=== PATIENT | female | born 1980 | race Hispanic/Latino ===

== ENCOUNTER → 2016-10-21 | Day surgery (SDC) | payer OTHER ==
[~2016-10-21] VITALS: Ht 160 cm; Wt 90.7 kg
[~2016-10-21] MED LIST: AUGMENTIN 875-1 EACH PO; CALCIUM + VITA1 EAC1 PO; CLEOCIN HCL300 M1 PO; COLACE100 MG PO; DILAUDID2 M1 PO; EPIPEN 2-P0.3 MG/0.3 IM; FERROUS SULFAT325 M2 PO; HAIR, SKIN & N1 EACH PO; HYDROXYZINE HCL25 M2 PO; IBUPROFEN800 M1 PO; LEXAPRO10 M1 PO; LEXAPRO5 M1 PO; NYSTATIN15 G1 TOP; PERCOCET 325 MG1 TA2 PO; PERCOCET 5-3251 EACH PO; PROAIR HFA8.5 GM INH; TRAZODONE HCL50 M1 PO; VITAMIN D31000 UNI2 PO
--- NOTE | 2016-10-22 13:05 | Operative Report ---
Operative/Inv Procedure Report Surgery Date: 10/21/16 Name of Procedure: Bilateral breast reduction Pre-Operative Diagnosis: Breast hypertrophy Post-Operative Diagnosis: Same Estimated Blood Loss: 50ml to 100ml (200) Surgeon/Car Rental Sales Assistant: MALATHI OLIVARES MD Anesthesia: general endotracheal tube Operative/Procedure Note Note: Patient was counseled on multiple occasions including discussion of the ASP S informed consents for breast reduction. We discussed the indications the alternatives the risks and expected outcomes. A she has chosen to proceed despite her current weight and she was advised that her breast might decrease in size with further or achieving optimal weight status. She has chosen to proceed. She states she would like her breasts small but she was given no guarantees regards to cup size. She was told she would likely be in the C to D bra cup size depending on how and where she buys her bras. We discussed once again the risks of infection bleeding definite asymmetry which will persist after surgery and was present preoperatively we talked about the possibly of symptomatic or slightly scars. About infection bleeding open wounds loss of nipple sensation and/or tissue. Once agreed to informed consent was signed. I also told her that the lateral chest wall will not be treated. She was marked in the standing position for an inferior pedicle Lovelace pattern technique. She is brought to the operating room placed supine on the table. Venodyne boots are placed and then general endotracheal anesthesia was established. The chest was prepped and draped in usual sterile fashion. De-epithelialize inferior pedicle Lovelace pattern technique was done after excising superior medial and lateral segments. She was temporarily closed put in the sitting position to assess symmetry and marked the location of the NAC's. over 1000grams was removed from each side.
== END ==
LOC: STS 02:07
DX: N62 Hypertrophy of breast (principal); M54.9 Dorsalgia, unspecified; E66.9 Obesity, unspecified
CPT/HCPCS: 81025; 88305; J0131; J0690; J1885; J2250; J2405

== ENCOUNTER 2016-11-05 16:35 | Emergency (ER) | payer OTHER ==
[~2016-11-05] VITALS: Ht 152.4 cm; Wt 90.7 kg
[~2016-11-05 16:35] MED LIST changes: -AUGMENTIN 875-1 EACH PO; -CALCIUM + VITA1 EAC1 PO; -CLEOCIN HCL300 M1 PO; -DILAUDID2 M1 PO; -FERROUS SULFAT325 M2 PO; -HAIR, SKIN & N1 EACH PO; -HYDROXYZINE HCL25 M2 PO; -IBUPROFEN800 M1 PO; -LEXAPRO10 M1 PO; -LEXAPRO5 M1 PO; -NYSTATIN15 G1 TOP; -PERCOCET 5-3251 EACH PO; -TRAZODONE HCL50 M1 PO; -VITAMIN D31000 UNI2 PO
--- NOTE | 2016-11-05 18:09 | ED ANIMAL BITE/WOUND CHECK ---
History of Present Illness General Chief Complaint: General Adult Stated Complaint: DRAINAGE FROM BOTH BREAST FROM PROCEDURE ON 10/21/16 Source: patient Exam Limitations: no limitations Vital Signs & Intake/Output Vital Signs & Intake/Output Vital Signs Date Time Temp Pulse Resp B/P Pulse O2 O2 Flow FiO2 Ox Delivery Rate 11/05 2153 98.9 84 18 140/80 97 Room Air 11/05 1836 98.6 86 18 139/76 100 Room Air ED Intake and Output 11/06 0000 11/05 1200 Intake Total 0 Output Total Balance 0 Intake, Oral 0 Patient 200 lb Weight Triage Note: PT TO ED FOR BREAST DRAINAGE S/P BREAST REDUCTION 10/21/16. STATES SHE HAS BEEN TRYING TO CONTACT PLASTIC SURGEON WHO TOLD HER TO COME TO [facility] "BECAUSE HES WORKING NOW." REPORTING DRAINAGE FOUL SMELLING, INTERMITTENT CHILLS AND "VERY TENDER BREASTS". Triage Nurses Notes Reviewed? yes Onset: Gradual Duration: week(s): (1) Timing: recent history Injury Environment: home No Modifying Factors: none : No Patient currently breastfeeds: No HPI: This is a 36-year-old healthy female who presents to the ER for chief complaint of bilateral breast pain for the past one week with foul-smelling drainage. She is status post bilateral breast reduction by Dr. Byrd on October 21. She states that she's been having episodes of feeling hot and cold at home but no documented temperatures. Last week she took a picture of her wounds and emailed them to the office. She did not hear back from them and called again today. They told her to come to the ER for any worsening pain or ports that there is been drainage from her left breast and some bleeding. She states the ranges foul-smelling and exceedingly painful. She is taking minimal pain medications at home. (MATTHEW ASHRAF,AMRIT) Allergies Coded Allergies: tree nut (Severe, ANAPHYLAXIS 11/05/16) REACTION NOT LISTED DURING PRE-SX INTERVIEW cat dander (RASH, COUGH, DYSPNEA 11/05/16) lactose (GI UPSET 10/12/16) pineapple (RASH/ITCHY TONGUE GOES NUMB AND SORES IN MOUTH 11/05/16) shrimp (ANAPHYLAXIS 11/05/16) Reconcile Medications Albuterol Sulfate (Proair Hfa) 90 MCG HFA.AER.AD 2 PUF INH AD ASTHMA ( Reported) Amoxicillin/Potassium Clav (Augmentin 875-125 Tablet) 875 MG-125 MG TABLET 1 TAB PO BID infection Epinephrine (Epipen 2-Quintin) 0.3 MG/0.3 ML AUTO.INJCT 0.3 MG IM AD PRN ALLERGIC REACTION (Reported) Ibuprofen 800 MG TABLET 1 TAB PO 4 TIMES/DAY PRN pain Oxycodone HCl/Acetaminophen (Percocet 5-325 MG Tablet) 5 MG-325 MG TABLET 1 TAB PO 4XDP PRN PAIN TEN...[id number] ([facility],COLIN Mancuso) Past History Travel History Traveled to [place] past 21 day No Medical History Any Pertinent Medical History? 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 No (MATTHEW ASHRAF,AMRIT) Review of Systems Review of Systems Constitutional: Reports: fever (SUBJECTIVE). Denies: chills. EENTM: Reports: no symptoms. Respiratory: Denies: cough, short of breath. Cardiovascular: Reports: see HPI (BILATERAL WOUND PAIN). GI: Denies: abdominal pain. Genitourinary: Denies: discharge, dysuria. Musculoskeletal: Reports: no symptoms. Skin: Reports: no symptoms. Neurological/Psychological: Reports: no symptoms. Hematologic/Endocrine: Reports: bruising. Denies: bleeding, polyuria, polydipsia. Immunologic/Allergic: Denies: splenectomy. All Other Systems: Reviewed and Negative (AMRIT HAWLEY MD) Physical Exam Physical Exam General Appearance: well developed/nourished, alert, awake, mild distress Head: atraumatic Eyes: Bilateral: PERRL, EOMI. Ears, Nose, Throat: normal pharynx, normal ENT inspection, hearing grossly normal Neck: normal inspection, supple Respiratory: normal breath sounds Cardiovascular: regular rate/rhythm Peripheral Pulses: 2+ radial (R), 2+ radial (L) Gastrointestinal: soft, non-tender Back: normal inspection Extremities: normal range of motion Neurologic/Psych: awake, alert, oriented x 3, normal mood/affect Skin: intact, normal color, warm/dry Lymphatic: no anterior cervical socorro Comments: Tender but intact wound under right breast, no wound dehiscence or drainage no areas of fluctuance Tender but intact wound under left breast, open area above the incision site with some skin breakdown, no active drainage noted, no fluctuance (AMRIT HAWLEY MD) Progress Differential Diagnosis: abscess, cellulitis, POST OP WOUND INFECTION Plan of Care: Orders Procedure Date/time Status BLOOD CULTURE 11/05 1819 Active WESTERGREN SED RATE 11/05 1819 Complete COMPREHENSIVE METABOLIC PANEL 11/05 1819 Complete CBC WITHOUT DIFFERENTIAL 11/05 1819 Complete Laboratory Tests 11/05/161846: Anion Gap 13, Estimated GFR > 60, BUN/Creatinine Ratio 26.7 H, Glucose 85, Calcium 9.1, Total Bilirubin 0.5, AST 22, ALT 33, Alkaline Phosphatase 131 H, Total Protein 7.3, Albumin 4.0, Globulin 3.3, Albumin/Globulin Ratio 1.2, CBC w Diff NO MAN DIFF REQ, RBC 3.50 L, MCV 84.1, MCH 27.8, RDW 15.9 H, MPV 8.2, Gran % 68.4, Lymphocytes % 18.7 L, Monocytes % 3.4, Eosinophils % 8.9 H, Basophils % 0.6, Absolute Granulocytes 8.0 H, Absolute Lymphocytes 2.2, Absolute Monocytes 0.4, Absolute Eosinophils 1.0, Absolute Basophils 0.1, PUBS MCHC 33.1, ESR Westergren 65 H Microbiology 11/05 1900 BLOOD: Blood Culture - RECD 11/05 1847 BLOOD: Blood Culture - RECD I discussed the patient's presentation with Dr. Byrd who agrees with labs. As the patient is afebrile here if her white count is normal he would like to start Augmentin and have her follow-up in the office on Tuesday. (AMRIT HAWLEY MD) Hand-Off Endorsed To: [facility],COLIN Mancuso Endorsed Time: 1917 Pending: labs (AMRIT HAWLEY MD) Departure Departure Disposition: STILL A PATIENT Condition: Stable Clinical Impression Primary Impression: Wound infection after surgery Referrals: SAMMIE CHEATHAM MD (PCP/Family) Departure Forms: Customer Survey General Discharge Information (AMRIT HAWLEY MD) Departure Prescriptions: Current Visit Scripts Amoxicillin/Potassium Clav (Augmentin 875-125 Tablet) 1 TAB PO BID #20 TAB Ibuprofen 1 TAB PO 4 TIMES/DAY PRN pain #90 TAB Oxycodone HCl/Acetaminophen (Percocet 5-325 MG Tablet) 1 TAB PO 4XDP PRN PAIN #10 TAB TEN...[id number] Comments discussed with patient at length... pt with serous drainage from both breasts, left slightly more than right... no sign of abscess... dr. hawley discussed with her plastic surgeon... slightly elevated wbc count with elevated esr... pt to go home with augmentin and will follow up with her surgeon on tuesday and sooner if she develops fever or worsening pain. ([facility],COLIN Mancuso)
[2016-11-05 19:13] LABS: ABSOLUTE BASOPHIL COUNT 0.1 /CUMM (0.0-0.2); ABSOLUTE LYMPH COUNT 2.2 /CUMM (1.2-3.4); ABSOLUTE MONOCYTE COUNT 0.4 /CUMM (0.10-0.60); BASOPHIL % 0.6 % (0.0-2.0); EOSINOPHIL % 8.9 % (0-5); GRANULOCYTE % 68.4 % (42.2-75.2); HEMATOCRIT 29.4 % (37-47); MEAN CORPUSCULAR HGB 27.8 PG (27.0-31.0); MEAN CORPUSCULAR HGB CONC 33.1 G/DL (33.0-37.0); MEAN CORPUSCULAR VOLUME 84.1 FL (81.0-99.0); MEAN PLATELET VOLUME 8.2 FL (7.4-10.4); PLATELET COUNT 381 /CUMM (130-400); RBC DISTRIBUTION WIDTH 15.9 % (11.5-14.5); WHITE BLOOD CELL COUNT 11.7 /CUMM (4.8-10.8)
[2016-11-05] MEDS ORDERED: PERCOCET 5-3251 EACH PO (21:30)
[2016-11-05] MEDS ORDERED: IBUPROFEN800 M1 PO (21:30)
[2016-11-05] MEDS ORDERED: AUGMENTIN 875-1 EACH PO (21:30)
[2016-11-05 21:53] VITALS: BP 140/80
[2016-11-06] MEDS ORDERED: DILAUDID2 M1 PO (14:30)
[2016-11-06] MEDS ORDERED: CLEOCIN HCL300 M1 PO (14:30)
== END 2016-11-05 21:57 ==
LOC: ERH 16:35
PROVIDERS: Emergency Medicine
DX: T81.89XA Other complications of procedures, not elsewhere classified, initial encounter (principal)
CPT/HCPCS: 87040; J3490

== ENCOUNTER 2016-11-06 12:25 | Emergency (ER) | payer OTHER ==
[~2016-11-06] VITALS: Ht 152.4 cm; Wt 90.7 kg
[~2016-11-06 12:25] MED LIST changes: +AUGMENTIN 875-1 EACH PO; +IBUPROFEN800 M1 PO; +PERCOCET 5-3251 EACH PO
--- NOTE | 2016-11-06 13:07 | ED GENERAL ADULT ---
History of Present Illness General Chief Complaint: General Adult Stated Complaint: MEDICATION REACTION Source: patient, old records Exam Limitations: no limitations Vital Signs & Intake/Output Vital Signs & Intake/Output Vital Signs Date Time Temp Pulse Resp B/P Pulse O2 O2 Flow FiO2 Ox Delivery Rate 11/06 1230 98.0 108 18 143/93 96 Room Air Room Air Allergies Coded Allergies: tree nut (Severe, ANAPHYLAXIS 11/05/16) REACTION NOT LISTED DURING PRE-SX INTERVIEW cat dander (RASH, COUGH, DYSPNEA 11/05/16) lactose (GI UPSET 10/12/16) pineapple (RASH/ITCHY TONGUE GOES NUMB AND SORES IN MOUTH 11/05/16) shrimp (ANAPHYLAXIS 11/05/16) Reconcile Medications Amoxicillin/Potassium Clav (Augmentin 875-125 Tablet) 875 MG-125 MG TABLET 1 TAB PO BID infection Clindamycin HCl (Cleocin HCl) 300 MG CAPSULE 1 CAP PO TID POST OP INFECTION Hydromorphone HCl (Dilaudid) 2 MG TABLET 1 TAB PO Q6P PRN PAIN Ibuprofen 800 MG TABLET 1 TAB PO 4 TIMES/DAY PRN pain Oxycodone HCl/Acetaminophen (Percocet 5-325 MG Tablet) 5 MG-325 MG TABLET 1 TAB PO 4XDP PRN PAIN TEN...[id number] Triage Note: TRIAGE: 36 Y/O FEMALE PRESENTS C/O ?MEDICATION REACTION S/P PLACED ON AUGMENTIN YESTERDAY. NOW EXPERIENCING RASH TO LEFT ARM. "MY LEFT ARM SO PAINFUL, IT HAPPENS WHEN I TOOK THE MEDICATION." * HAD BREAST REDUCTION SURGERY BY DR MALATHI OLIVARES ON 10/21/2016. Triage Nurses Notes Reviewed? yes : No Patient currently breastfeeds: No HPI: Patient had recent breast reduction surgery and was seen here yesterday and diagnosed with postop infection. She was discharged home on Augmentin as well as Percocet. Patient states that yesterday both of her arms were hurting however today it just the left one. Patient states that she continues to have pain and tingling to her left arm. Those symptoms have been going on for the past 2-3 days. The pain is throbbing and is constant. The pain is 10 out of 10. There's been no relief from the Percocet. She denies any weakness. Patient denies any fevers or chills. Patient states that she was given a dose of Augmentin last night and this morning she woke up with a rash on both of her arms. Patient did not take her morning dose of Augmentin. Patient called her doctor who told her to come to the emergency room. Patient states that she did not have any difficulty breathing or swallowing. There is no swelling. And the rash has pretty much resolved by the time she arrives at the emergency department. Past History Travel History Traveled to [place] past 21 day No Medical History Any Pertinent Medical History? 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 No Review of Systems Review of Systems Constitutional: Reports: no symptoms. EENTM: Reports: no symptoms. Respiratory: Reports: no symptoms. Cardiovascular: Reports: no symptoms. GI: Reports: no symptoms. Genitourinary: Reports: no symptoms. Musculoskeletal: Reports: see HPI, muscle pain (LEFT ARM). Skin: Reports: see HPI, rash. Neurological/Psychological: Reports: see HPI, tingling (LEFT ARM). Hematologic/Endocrine: Reports: no symptoms. Immunologic/Allergic: Reports: no symptoms. All Other Systems: Reviewed and Negative Physical Exam Physical Exam General Appearance: well developed/nourished, alert, awake, moderate distress Head: atraumatic Eyes: Bilateral: PERRL, EOMI. Ears, Nose, Throat: normal pharynx, normal ENT inspection, hearing grossly normal Neck: normal inspection, supple, full range of motion Respiratory: normal breath sounds, chest non-tender, no respiratory distress, lungs clear Cardiovascular: regular rate/rhythm, normal peripheral pulses Gastrointestinal: normal bowel sounds, soft Extremities: normal inspection, normal capillary refill, normal range of motion, no edema, CAP REFIL <2 SEC, SENSATION EQUAL BETWEEN BOTH ARMS, NORMAL RADIAL PULSE, NO EDEMA, NO SIGNS OF COMPARTMENT SYNDROME. Neurologic/Psych: no motor/sensory deficits, awake, alert, oriented x 3, normal gait, normal mood/affect Skin: intact, normal color, warm/dry, rash (MINIMAL ON LUE AND RUE) Lymphatic: no anterior cervical socorro Core Measures ACS in differential dx? No CVA/TIA Diagnosis: No Severe Sepsis Present: No Septic Shock Present: No Progress Differential Diagnoses I considered the following diagnoses in my evaluation of the patient: [ MEDICATION REACTION, COMPARTNEMTN SYNDROME, DVT] Plan of Care: Orders Procedure Date/time Status US-DUPLEX VENOUS EXTREM UNI 11/06 1305 Active Diagnostic Imaging: Viewed by Me: Ultrasound. Discussed w/RAD: Ultrasound. Radiology Impression: PATIENT: MAGNOLIA MATTA PRESENT AGE: 36 PATIENT ACCOUNT NO: [id number] : 78 LOCATION: [facility] ORDERING PHYSICIAN: DERRICK JUDD MD SERVICE DATE: 11/06/16 EXAM TYPE: US - US-DUPLEX VENOUS EXTREM UNI EXAMINATION: US DUPLEX UPPER EXTREMITY VEINS, LEFT CLINICAL INFORMATION: Postoperative pain and edema. COMPARISON: None. TECHNIQUE: Pulse, color and grayscale modalities are utilized to examine the left upper extremity deep venous system. FINDINGS: The left internal jugular , subclavian, axillary, brachial, basilic, cephalic, radial an ulnar veins are patent and compressible. No deep venous thrombosis is seen. IMPRESSION: Unremarkable examination. DICTATED BY: MALATHI FERRARO MD DATE/TIME DICTATED:11/06 INTERNATIONAL TRADE SPECIALIST:MAILE DATE/TIME TRANSCRIBED:11/06/161411 CONFIDENTIAL, DO NOT COPY WITHOUT APPROPRIATE AUTHORIZATION. <Electronically signed in Other Vendor System> SIGNED BY: MALATHI FERRARO MD 11/06/161416 Initial ED EKG: none Departure Departure Disposition: HOME OR SELF CARE Condition: Stable Clinical Impression Primary Impression: Medication reaction Referrals: SAMMIE CHEATHAM MD (PCP/Family) Departure Forms: Customer Survey General Discharge Information Prescriptions: Current Visit Scripts Clindamycin HCl (Cleocin HCl) 1 CAP PO TID #30 CAP Hydromorphone HCl (Dilaudid) 1 TAB PO Q6P PRN PAIN #20 TAB Critical Care Note Critical Care Note Critical Care Time: non-applicable
--- NOTE | 2016-11-06 14:17 | ULTRASOUND REPORT ---
EXAMINATION: US DUPLEX UPPER EXTREMITY VEINS, LEFT CLINICAL INFORMATION: Postoperative pain and edema. COMPARISON: None. TECHNIQUE: Pulse, color and grayscale modalities are utilized to examine the left upper extremity deep venous system. FINDINGS: The left internal jugular, subclavian, axillary, brachial, basilic, cephalic, radial an ulnar veins are patent and compressible. No deep venous thrombosis is seen. IMPRESSION: Unremarkable examination.
[2016-11-06] MEDS ORDERED: CLEOCIN HCL300 M1 PO (14:30)
[2016-11-06] MEDS ORDERED: DILAUDID2 M1 PO (14:30)
[2016-11-06 14:51] VITALS: BP 134/82
== END 2016-11-06 14:51 ==
LOC: ERH 12:25
DX: T36.91XA Poisoning by unspecified systemic antibiotic, accidental (unintentional), initial encounter (principal)

== ENCOUNTER 2017-03-18 18:18 | Inpatient (IN) | payer OTHER ==
[~2017-03-18] VITALS: Ht 157.5 cm; Wt 92.1 kg
[~2017-03-18 18:18] MED LIST changes: +CLEOCIN HCL300 M1 PO; +DILAUDID2 M1 PO
--- NOTE | 2017-03-18 18:27 | ED CRITICAL CARE ---
History of Present Illness General Chief Complaint: Psychiatric Related Complaint Stated Complaint: BIBA +SI OVERDOSE? Source: old records, EMS Exam Limitations: clinical condition Allergies Coded Allergies: tree nut (Severe, ANAPHYLAXIS 03/18/17) REACTION NOT LISTED DURING PRE-SX INTERVIEW cat dander (RASH, COUGH, DYSPNEA 03/18/17) lactose (GI UPSET 03/18/17) pineapple (RASH/ITCHY TONGUE GOES NUMB AND SORES IN MOUTH 03/18/17) shrimp (ANAPHYLAXIS 03/18/17) Reconcile Medications Calcium Carbonate/Vitamin D3 (Calcium + Vitamin D Tablet) 600 MG-200 TABLET 1 TAB PO DAILY Supplement Cholecalciferol (Vitamin D3) 1,000 UNIT TABLET 1,000 IU PO DAILY SUPPLEMENT Escitalopram Oxalate (Lexapro) 5 MG TABLET 5 MG PO DAILY DEPRESSION Ferrous Sulfate 325 MG (65 MG IRON) TABLET.DR 325 MG PO TID IRON SUPPLEMENT Hydroxyzine HCl 25 MG TABLET 25 MG PO Q6-PRN PRN ANXIETY Multivitamin With Minerals (Hair, Skin & Nails) 1 EACH TABLET 2 TAB PO DAILY VITAMIN (Reported) Trazodone HCl 50 MG TABLET 50 MG PO AT BEDTIME NEEDED PRN INSOMNIA Triage Nurses Notes Reviewed? yes Onset: Afternoon Duration: hour(s): (FEW) Timing: single episode today Injury Environment: home Severity: severe Method of Injury: PILL OD, CO POISONING HPI: This is a 37-year-old female who presents via EMS from home after police found her in her garage with the car running in the garage are closed. Beside her were empty bottles of Dilaudid, bottle of Motrin with a few pills left and then as well as an empty bottle of Benadryl. Patient was minimally responsive. She was given 2 g milligrams of intranasal Narcan with good effect. Patient found to be tachycardic. She is altered. When asked what she took she states she took some pills. According to EMS she left a suicide note asking for her sister to take care of her daughter. There was a 2-year-old daughter found sleeping upstairs. Patient started on high flow oxygen. Fingerstick in the field was over 100. Peripheral access was obtained. (MATTHEW AHSRAF,AMRIT) Vital Signs & Intake/Output Vital Signs & Intake/Output Vital Signs Date Time Temp Pulse Resp B/P B/P Pulse O2 O2 Flow FiO2 Mean Ox Delivery Rate 03/19 2015 98.2 74 20 132/80 96 Room Air 03/19 1530 99.3 84 16 112/78 97 Room Air 03/19 0859 98.5 105 18 134/90 95 Room Air ED Intake and Output 03/20 0000 03/19 1200 Intake Total 1900 500 Output Total 875 1650 Balance 1025 -1150 Intake, IV 1200 500 Intake, Oral 700 0 Number 0 Bowel Movements Output, Urine 875 1650 Patient 203 lb Weight Weight Reported by Patient Measurement Method Past History Medical History Neurological: NONE EENT: SEASONAL ALLERGIES Cardiovascular: NONE Respiratory: NONE Gastrointestinal: NONE Hepatic: NONE Renal: NONE Musculoskeletal: NONE Psychiatric: NONE Endocrine: NONE Blood Disorders: NONE Cancer(s): NONE 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 see below for history Family History Hx Contributory? No (COLIN MADRID MD) Review of Systems Review of Systems Constitutional: Reports: see HPI (unable to obtain from patient). (AMRIT CASTRO MD) Review of Systems Constitutional: Reports: no symptoms. Eyes: Reports: no symptoms. Ears, Nose, Throat, Mouth: Reports: no symptoms. Respiratory: Reports: no symptoms. Cardiovascular: Reports: no symptoms. Gastrointestinal/Abdominal: Reports: no symptoms. Genitourinary: Reports: no symptoms. Musculoskeletal: Reports: no symptoms. Skin: Reports: no symptoms. Neurological/Psychological: Reports: no symptoms. All Other Systems: Reviewed and Negative (COLIN MADRID MD) Physical Exam Physical Exam General Appearance: awake, lethargic, moderate distress, obese Eyes: Bilateral: other (horizontal nystagmus). Ears, Nose, Throat, Mouth: DRY MUCUS MEMBRANES Cardiovascular: tachycardia Peripheral Pulses: 2+ radial (R), 2+ radial (L) Neurologic/Psych: awake (AMRIT CASTRO MD) Physical Exam General Appearance: well developed/nourished, lethargic Head: atraumatic, normal appearance Eyes: Bilateral: normal appearance, PERRL, EOMI. Ears, Nose, Throat, Mouth: hearing grossly normal Neck: normal inspection, supple, full range of motion Respiratory: normal breath sounds, chest non-tender, no respiratory distress, quiet respiration, lungs clear Cardiovascular: regular rate/rhythm Gastrointestinal: normal bowel sounds, soft, non-tender, no organomegaly Back: normal inspection, normal range of motion Extremities: normal range of motion Neurologic/Psych: no motor/sensory deficits, lethargic, difficult to arouse Skin: intact, normal color, warm/dry Core Measures ACS in differential dx? No CVA/TIA Diagnosis: No Severe Sepsis Present: No Septic Shock Present: No ([facility] ASHRAF,COLIN Mancuso) Progress Differential Diagnoses I considered the following diagnoses in my evaluation of the patient: [ Medication overdose, suicide attempt,MAJOR DEPRESSION, carbon monoxide poisoning , , etoh intoxication] Diagnostic Imaging: Viewed by Me: Radiology Read. Discussed w/RAD: Radiology Read. CXR Impression: PATIENT: MAGNOLIA MATTA PRESENT AGE: 37 PATIENT ACCOUNT NO: [id number] : 78 LOCATION: [facility] ORDERING PHYSICIAN: AMRIT CASTRO MD SERVICE DATE: 03/18/17 EXAM TYPE: RAD - XRY-PORTABLE CHEST XRAY EXAMINATION: XR PORTABLE CHEST CLINICAL INFORMATION: Suicide attempt. Overdose. COMPARISON: Chest x-ray 05/23/2009. TECHNIQUE: Portable frontal view of the chest was obtained. FINDINGS: Limited exam secondary to patient body habitus and low lung volumes. Cardiomediastinal contours are obscured. An underlying pulmonary process is not entirely excluded. No visible pneumothoraces. Limited evaluation for pleural effusions. No visible acute osseous abnormality. IMPRESSION: Significantly limited exam secondary to patient body habitus and low lung volumes. Limited evaluation for aspiration pneumonitis. Consider correlation with a repeat portable chest x-ray with better inspiration or perhaps a PA and lateral chest x-ray. DICTATED BY: SARAH CRUZ MD DATE/TIME DICTATED:03/18/171901 CAR SUPERVISOR:MAILE DATE/TIME TRANSCRIBED:03/18/171901 CONFIDENTIAL, DO NOT COPY WITHOUT APPROPRIATE AUTHORIZATION. <Electronically signed in Other Vendor System> SIGNED BY: SARAH CRUZ MD 03/18/171913 Initial ED EKG: SINUS TACHYCARDIA @ 152 BPM QTC 293 Hand-Off Endorsed To: COLIN MADRID MD Endorsed Time: 2019 Pending: labs (MATTHEW ASHRAF,AMRIT) Differential Diagnoses I considered the following diagnoses in my evaluation of the patient: as above. Plan of Care: Orders Procedure Date/time Status Regular Diet 03/19 D Active Patient Data - inpatient psych 03/19 1557 Active Admit to inpatient psych 03/19 1557 Active Ly, Insertion/Removal/Asses 03/19 1233 Active Skin/Pressure Ulcer Assess (Sk 03/19 1047 Active Discharge Patient 03/19 UNK Active Vital Signs 03/19 UNK Active Discontinue Telemetry/Monitor 03/19 UNK Active Discontinue Nursing Interventi 03/19 UNK Active Activity/Ambulation 03/19 UNK Active SOCIAL WORK CONSULT 03/19 UNK Active PSYCHIATRIC CONSULT 03/19 UNK Active Laboratory Tests 03/19/17 0714: Anion Gap 10, Estimated GFR > 60, BUN/Creatinine Ratio 10.0, Calcium 7.8 L, Phosphorus 3.5, Magnesium 2.3, 25-OH Vitamin D Total 18.0 L, PTH Intact 172.7 H, CBC w Diff NO MAN DIFF REQ, RBC 4.54, MCV 77.7 L, MCH 25.4 L, RDW 19.4 H, MPV 9.4, Gran % 74.2, Lymphocytes % 20.6, Monocytes % 4.4, Eosinophils % 0.4, Basophils % 0.4, Absolute Granulocytes 7.4 H, Absolute Lymphocytes 2.0, Absolute Monocytes 0.4, Absolute Eosinophils 0, Absolute Basophils 0, PUBS MCHC 32.7 L ekg, tele monitor, fingerstick, labs, ly catheter. iv fluid boluses started d/w poison control - fluid resussciation, monitor airway patient will be admitted to ICU. Improving heart rate after fluid boluses (MATTHEW ASHRAF,AMRIT) Departure Departure Disposition: STILL A PATIENT Condition: Stable Clinical Impression Primary Impression: Overdose Secondary Impressions: Suicide attempt Referrals: SAMMIE CHEATHAM MD (PCP/Family) Departure Forms: Customer Survey General Discharge Information Prescriptions: Current Visit Scripts Ferrous Sulfate 325 MG PO TID 30 Days Escitalopram Oxalate (Lexapro) 5 MG PO DAILY #30 Trazodone HCl 50 MG PO AT BEDTIME NEEDED PRN INSOMNIA 30 Days Hydroxyzine HCl 25 MG PO Q6-PRN PRN ANXIETY 30 Days Calcium Carbonate/Vitamin D3 (Calcium + Vitamin D Tablet) 1 TAB PO DAILY 14 Days Cholecalciferol (Vitamin D3) 1,000 IU PO DAILY 30 Days (AMRIT CASTRO MD) Admission Note Spoke With: SAMMIE CHEATHAM MD Documentation of Exam: Documentation of any treatments & extenuating circumstances including Concerns Regarding Discharge (functional status, medication knowledge or non-compliance, living conditions, etc.) that warrant an admission rather than observation: pt with opioid overdose requiring narcan x 2 in the field, remains somnolent, difficult to arouse after 4.5 hours of ED time. Pt also had suicide attempt. Pt merits continual 02 monitoring, psyche consult, consider narcan if needed. ([facility] ASHRAF,COLIN Mancuso) Critical Care Note Critical Care Note Critical Care Time: 30-74 min (AMRIT CASTRO MD) Critical Care Note Critical Care Time: 30-74 min ([facility] ASHRAF,COLIN Mancuso)
[2017-03-18 19:07] LABS: ABSOLUTE BASOPHIL COUNT 0 /CUMM (0.0-0.2); ABSOLUTE EOSINOPHIL COUNT 0.1 /CUMM (0.0-0.7); ABSOLUTE GRANULOCYTE CT 6.1 /CUMM (1.4-6.5); ABSOLUTE LYMPH COUNT 2.3 /CUMM (1.2-3.4); ABSOLUTE MONOCYTE COUNT 0.4 /CUMM (0.10-0.60); BASOPHIL % 0.3 % (0.0-2.0); EOSINOPHIL % 0.9 % (0-5); GRANULOCYTE % 68.8 % (42.2-75.2); HEMATOCRIT 36.9 % (37-47); MEAN CORPUSCULAR HGB CONC 32.3 G/DL (33.0-37.0); MEAN CORPUSCULAR VOLUME 77.4 FL (81.0-99.0); MEAN PLATELET VOLUME 9.7 FL (7.4-10.4); PLATELET COUNT 314 /CUMM (130-400); RBC DISTRIBUTION WIDTH 19.1 % (11.5-14.5); RED BLOOD CELL CT 4.76 /CUMM (4.20-5.40); WHITE BLOOD CELL COUNT 8.9 /CUMM (4.8-10.8)
--- NOTE | 2017-03-18 19:14 | RADIOLOGY REPORT ---
EXAMINATION: XR PORTABLE CHEST CLINICAL INFORMATION: Suicide attempt. Overdose. COMPARISON: Chest x-ray 05/23/2009. TECHNIQUE: Portable frontal view of the chest was obtained. FINDINGS: Limited exam secondary to patient body habitus and low lung volumes. Cardiomediastinal contours are obscured. An underlying pulmonary process is not entirely excluded. No visible pneumothoraces. Limited evaluation for pleural effusions. No visible acute osseous abnormality. IMPRESSION: Significantly limited exam secondary to patient body habitus and low lung volumes. Limited evaluation for aspiration pneumonitis. Consider correlation with a repeat portable chest x-ray with better inspiration or perhaps a PA and lateral chest x-ray.
[2017-03-18 21:05] LABS: PT 12.2 SEC (9.4-12.5); PTT 30 SEC (25-37)
--- NOTE | 2017-03-19 00:33 | History & Physical ---
See Addendum General Information and HPI MD Statement: I have seen and personally examined MAGNOLIA MATTA and documented this H&P. The patient is a 37 year old F who presented with a patient stated chief complaint of suicidal attempt with drug overdose []. Source of Information: patient, EMS Exam Limitations: no limitations History of Present Illness: Patient is 37-year-old female with no significant past medical history was brought in by police who found her in her garage with empty bottle of Dilaudid, bottle of Motrin 800 mg and also bottle of diphenhydramine beside her. Patient was going through a lot of stress lately. She was claiming that her fianc cheat on her and she intentionally took medications/drug overdose for suicidal attempt. During my interview she was continuously very tearful and stressed. She took medications which she said she is not sure how many pills she took and also she is mention that she took some [id number] sleeping pills that she don't remember the name and some of other medications. After taking medications she called her fianc that she took those and come and take her daughter. Her fianc called for these who came home and found her unconscious and was given 2 rounds of Narcan with significant response. She denied any chest pain, palpitations, respiratory distress, shortness of breath, any urinary or bowel complaints. She just feels very tired. Her vital signs on admission were temperature 98.4, pulse 156 came down to 1:15 later, respiratory rate 20, blood pressure 172/113 came down to 141/88 and she was saturating under percent on non-rebreather mask but later on was saturating fine on room air. Her labs on admission were WBC count 8.9, hemoglobin 11.9, hematocrit 36.9, platelet count 314, ABGs were 7.38/36/271/21, sodium 139, potassium 3.9, BUNs 13 , creatinine 0.6, Chest x-ray showed limited evaluation for aspiration pneumonitis. Allergies/Medications Allergies: Coded Allergies: tree nut (Severe, ANAPHYLAXIS 03/18/17) REACTION NOT LISTED DURING PRE-SX INTERVIEW cat dander (RASH, COUGH, DYSPNEA 03/18/17) lactose (GI UPSET 03/18/17) pineapple (RASH/ITCHY TONGUE GOES NUMB AND SORES IN MOUTH 03/18/17) shrimp (ANAPHYLAXIS 03/18/17) Home Med list Amoxicillin/Potassium Clav (Augmentin 875-125 Tablet) 875 MG-125 MG TABLET 1 TAB PO BID infection Clindamycin HCl (Cleocin HCl) 300 MG CAPSULE 1 CAP PO TID POST OP INFECTION Hydromorphone HCl (Dilaudid) 2 MG TABLET 1 TAB PO Q6P PRN PAIN Ibuprofen 800 MG TABLET 1 TAB PO 4 TIMES/DAY PRN pain Oxycodone HCl/Acetaminophen (Percocet 5-325 MG Tablet) 5 MG-325 MG TABLET 1 TAB PO 4XDP PRN PAIN TEN...[id number] Compliance With Home Meds: UNKNOWN Past History Travel History Traveled to [place] past 21 day No Medical History Neurological: NONE EENT: SEASONAL ALLERGIES Cardiovascular: NONE Respiratory: NONE Gastrointestinal: NONE Hepatic: NONE Renal: NONE Musculoskeletal: NONE Psychiatric: SI ATTEMPT 2017 Endocrine: NONE Blood Disorders: NONE Cancer(s): 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 Home Functional Ability ADLs Independent: dressing, eating, toileting, bathing. Ambulation: independent IADLs Independent: shopping, housework, finances, food prep, telephone, transportation , medication admin. Review of Systems Review of Systems Constitutional: Reports: malaise, weakness. Denies: chills, diaphoresis. EENTM: Denies: blurred vision, double vision, visual changes. Cardiovascular: Denies: chest pain, edema, orthopena. Respiratory: Denies: cough, hemoptysis, orthopnea. GI: Denies: constipation, diarrhea. Genitourinary: Denies: discharge, dysuria, frequency. Musculoskeletal: Denies: joint pain. Exam & Diagnostic Data Last 24 Hrs of Vital Signs/I&O Vital Signs Date Time Temp Pulse Resp B/P B/P Pulse O2 O2 Flow FiO2 Mean Ox Delivery Rate 03/19 0151 98.9 118 18 156/102 97 Room Air 03/19 0009 105 18 128/91 90 Room Air 03/18 2302 97.3 115 14 141/88 96 Room Air 03/185 97.2 113 17 131/91 97 03/18 2104 97.5 118 15 159/98 94 03/18 1946 97.2 135 18 153/94 98 06/02 1942 98.4 131 18 153/94 98 Room Air 03/18 1856 100 Non 100% ReBreather 03/18 1845 98.4 146 20 155/81 100 Non 100% ReBreather 03/18 1823 156 20 172/113 100 Non 100% ReBreather Intake & Output 03/19 0800 03/19 0000 03/18 1600 Intake Total 5000 Output Total 3900 Balance 1100 Intake, IV 5000 Intake, Oral 0 Output, Urine 3900 Patient 230 lb Weight Weight Estimated Measurement Method Physical Exam General Appearance Alert, Oriented X3, Cooperative Cardiovascular Regular Rate, Normal S1, Normal S2 Lungs Clear to Auscultation Abdomen Soft, No Tenderness Neurological Normal Speech, Strength at 5/5 X4 Ext, Normal Tone, Sensation Intact Extremities No Clubbing, No Cyanosis, No Edema Last 24 Hrs of Labs/Kris: Laboratory Tests 03/18/17 2030: PT 12.2, INR 1.16, APTT 30 03/18/175: Urine Opiates Screen > 4000.00 H, Methadone Screen 200, Barbiturate Screen < 60 , Ur Phencyclidine Scrn 16.80, Amphetamines Screen < 100, U Benzodiazepines Scrn < 85, Urine Cocaine Screen < 50, Urine Cannabis Screen < 5.00 03/18/171834: pH 7.38, pCO2 36, pO2 271 H, HCO3 21, ABG O2 Sat (Measured) 99.0, Carboxyhemoglobin 0.3 L, O2 Concentration % 100%, O2 Delivery Method NRB, Anion Gap 8, Estimated GFR > 60, BUN/Creatinine Ratio 21.7, Glucose 97, Lactic Acid 2.0, Calcium 6.9 L, Magnesium 1.6, Total Bilirubin 0.5, AST 29, ALT 46, Alkaline Phosphatase 104, Ammonia 15, Creatine Kinase 72, Total Protein 6.2 L, Albumin 3.5, Globulin 2.7, Albumin/Globulin Ratio 1.3, Total Beta HCG NEGATIVE, CBC w Diff NO MAN DIFF REQ, RBC 4.76, MCV 77.4 L, MCH 25.0 L, RDW 19.1 H, MPV 9.7, Gran % 68.8, Lymphocytes % 26.0, Monocytes % 4.0, Eosinophils % 0.9, Basophils % 0.3, Absolute Granulocytes 6.1, Absolute Lymphocytes 2.3, Absolute Monocytes 0.4, Absolute Eosinophils 0.1, Absolute Basophils 0, PUBS MCHC 32.3 L , Phlebotomy Draw Site RIGHT RADIAL, Salicylates < 1.0, Acetaminophen < 10.0 L, Serum Alcohol < 10.0 03/18/171831: Salicylates Cancelled, Acetaminophen Cancelled Microbiology 03/18 1830 URINE ROUT: Urine Culture - RECD Assessment/Plan Assessment: Patient is 37-year-old female with nonsignificant past medical history came with chief complaint of intentional drug overdose with opiates/ibuprofen/questionable benzos with good response to Narcan. We'll admit patient on telemetry floor Problem list 1. Drug overdose 2. Suicide attempt 3. Severe depression 4. Hypocalcemia 5. Hypocalcemia Plan 1. We will monitor her on telemetry floor for any potential arrhythmias 2. We will request psych evaluation in a.m. 3. Patient will be monitored by one-to-one sitter. 4. We'll repeat labs in a.m. including calcium, magnesium, phosphorous, PTH and vitamin D 5. We will replete calcium and magnesium for now 6. We will consider social service assistant consultation in a.m. Regular diet Pharmacological DVT prophylaxis Patient is full code As Ranked By This Provider Problem List: 1. Suicide attempt 2. Overdose Core Measures/Miscellaneous Acute Coronary Syndrome ACS Diagnosis: No Cerebrovascular Accident CVA/TIA Diagnosis: No Congestive Heart Failure CHF Diagnosis: No Venous Thromboembolism VTE Risk Factors: Acute medical illness No [facility] VTE prophylaxis d/t: No contraindications No VTE Pharm Prophylaxis d/t: No contraindications VTE Diagnosis: No VTE Type: NONE VTE Confirmed by (Test): NONE Severe Sepsis Severe Sepsis Present: No Septic Shock Septic Shock Present: No Miscellaneous Documentation Attending Case Discussed With: SAMMIE CHEATHAM MD Primary Care Physician: SAMMIE CHEATHAM MD Patient sees these Specialists NONE Level of Patient Care: Telemetry Consults Needed: Consulting Specialty: Technical Internship Review Statement Resident Statement: examined this patient
[2017-03-19 01:51] VITALS: BP 156/102
[2017-03-19 08:25] LABS: ABSOLUTE BASOPHIL COUNT 0 /CUMM (0.0-0.2); ABSOLUTE EOSINOPHIL COUNT 0 /CUMM (0.0-0.7); ABSOLUTE GRANULOCYTE CT 7.4 /CUMM (1.4-6.5); ABSOLUTE MONOCYTE COUNT 0.4 /CUMM (0.10-0.60); BASOPHIL % 0.4 % (0.0-2.0); EOSINOPHIL % 0.4 % (0-5); GRANULOCYTE % 74.2 % (42.2-75.2); HEMATOCRIT 35.2 % (37-47); MEAN CORPUSCULAR HGB 25.4 PG (27.0-31.0); MEAN CORPUSCULAR HGB CONC 32.7 G/DL (33.0-37.0); MEAN CORPUSCULAR VOLUME 77.7 FL (81.0-99.0); MEAN PLATELET VOLUME 9.4 FL (7.4-10.4); PLATELET COUNT 306 /CUMM (130-400); RBC DISTRIBUTION WIDTH 19.4 % (11.5-14.5); RED BLOOD CELL CT 4.54 /CUMM (4.20-5.40); WHITE BLOOD CELL COUNT 9.9 /CUMM (4.8-10.8)
[2017-03-19 08:59] VITALS: BP 134/90
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
--- NOTE | 2017-03-19 14:22 | RADIOLOGY REPORT ---
EXAMINATION: XR CHEST CLINICAL INFORMATION: Pneumonia, mental status change COMPARISON: 03/18/2017 chest x-ray TECHNIQUE: 2 views of the chest were obtained. FINDINGS: Normal cardiomediastinal silhouette. The pulmonary vascularity is within normal limits. There is left lower lobe pulmonary opacity. No pleural effusions or pneumothorax. The right lung is clear. The visualized bony thorax is unremarkable. IMPRESSION: Left lower lobe pulmonary opacity, could represent atelectasis and/or pneumonia. Clinical correlation is suggested.
[2017-03-19] MEDS ORDERED: TRAZODONE HCL50 M1 PO (15:23)
[2017-03-19] MEDS ORDERED: FERROUS SULFAT325 M2 PO (15:23)
[2017-03-19] MEDS ORDERED: CALCIUM + VITA1 EAC1 PO (15:23)
[2017-03-19] MEDS ORDERED: LEXAPRO5 M1 PO (15:23)
[2017-03-19] MEDS ORDERED: HYDROXYZINE HCL25 M2 PO (15:23)
[2017-03-19] MEDS ORDERED: VITAMIN D31000 UNI2 PO (15:23)
[2017-03-19 15:30] VITALS: BP 112/78
--- NOTE | 2017-03-19 15:33 | Patient Discharge Instructions ---
Discharge Instructions General Discharge Information You were seen/treated for: Drug overdose Special Instructions: Please follow up with your primary care physician and psychiatrist within 1 week of discharge. Acute Coronary Syndrome Inclusion Criteria At DC or during hospital stay patient has or had the following: ACS DIAGNOSIS No Discharge Core Measures Meds if any: Prescribed or Continued at Discharge Meds if any: NOT Prescribed or Continued at Discharge Congestive Heart Failure Inclusion Criteria At DC or during hospital stay patient has or had the following: CHF DIAGNOSIS No Discharge Core Measures Meds if any: Prescribed or Continued at Discharge Meds if any: NOT Prescribed or Continued at Discharge Cerebrovascular accident Inclusion Criteria At DC or during hospital stay patient has or had the following: CVA/TIA Diagnosis No Discharge Core Measures Meds if any: Prescribed or Continued at Discharge Meds if any: NOT Prescribed or Continued at Discharge Venous thromboembolism Inclusion Criteria VTE Diagnosis No VTE Type NONE VTE Confirmed by (Test) NONE Discharge Core Measures - Per Current guidelines, there needs to be overlap - treatment for the first 5 days of Warfarin therapy. - If discharged on Warfarin prior to 5 days of - overlap therapy, the patient will need to be - assessed for post discharge needs including - *Post discharge parental anticoagulation - *Warfarin and/or parental anticoagulation education - *Follow up date to check INR post discharge At least 5 days overlap therapy as Inpatient No Meds if any: Prescribed or Continued at Discharge Note: Overlap Therapy is Warfarin and Anticoagulant Meds if any: NOT Prescribed or Continued at Discharge
--- NOTE | 2017-03-19 16:09 | Admission Certification ---
Admission Certification Certification Statement - As attending physician, I certify that at the time of - admission, based on clinical presentation, severity of - symptoms, need for further diagnostic testing and - therapeutic interventions, and risk of adverse outcomes - without in-hospital treatment, in my clinical assessment, - this patient requires an acute hospital stay for a minimum - of two nights or longer. I have also considered psychsocial - factors such as support system, advanced age, financial - issues, cognitive issues, and failed out-patient treatments, - past re-admission history, safety of patient, and lack of - compliance as applicable. Specific rationale supporting this admission is: Change in mental status, drug overdose, intentional
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
[2017-03-19 20:15] VITALS: BP 132/80
[2017-03-19] MEDS ORDERED: HAIR, SKIN & N1 EACH PO (21:38)
--- NOTE | 2017-03-31 12:16 | Discharge Summary ---
Visit Information Visit Dates Admission Date: 03/18/17 Discharge Date: 03/19/17 Hospital Course Course Attending Physician: SAMMIE CHEATHAM MD Primary Care Physician: SAMMIE CHEATHAM MD Consulting Request: Consulting Specialty: Psychiatry Consulting Physician: Psychiatry staff Reason for Consult: suicidal ideation and drug overdose Hospital Course: 37-year-old female who has a young daughter having a lot of marital problems with a boyfriend and was found in the groin rash with an antiviral of Dilaudid, another of Motrin 800 and Benadryl. After paramedics came she had Narcan and responded to and was brought to the emergency room was evaluated admitted for observation had emergency psychiatric evaluation the next day the patient was stable enough to be transferred to Inpatient Psychiatry for further evaluation Complications: None Allergies: Coded Allergies: tree nut (Severe, ANAPHYLAXIS 03/18/17) REACTION NOT LISTED DURING PRE-SX INTERVIEW cat dander (RASH, COUGH, DYSPNEA 03/18/17) lactose (GI UPSET 03/18/17) pineapple (RASH/ITCHY TONGUE GOES NUMB AND SORES IN MOUTH 03/18/17) shrimp (ANAPHYLAXIS 03/18/17) Pertinent Lab Results: 03/18/17 2030: PT 12.2, INR 1.16, APTT 30 03/18/17 1835: Urine Opiates Screen > 4000.00 H, Methadone Screen 200, Barbiturate Screen < 60 , Ur Phencyclidine Scrn 16.80, Amphetamines Screen < 100, U Benzodiazepines Scrn < 85, Urine Cocaine Screen < 50, Urine Cannabis Screen < 5.00 03/18/17 1835: pH 7.38, pCO2 36, pO2 271 H, HCO3 21, ABG O2 Sat (Measured) 99.0, Carboxyhemoglobin 0.3 L, O2 Concentration % 100%, O2 Delivery Method NRB, Anion Gap 8, Estimated GFR > 60, BUN/Creatinine Ratio 21.7, Glucose 97, Lactic Acid 2.0, Calcium 6.9 L, Magnesium 1.6, Total Bilirubin 0.5, AST 29, ALT 46, Alkaline Phosphatase 104, Ammonia 15, Creatine Kinase 72, Total Protein 6.2 L, Albumin 3.5, Globulin 2.7, Albumin/Globulin Ratio 1.3, Total Beta HCG NEGATIVE, CBC w Diff NO MAN DIFF REQ, RBC 4.76, MCV 77.4 L, MCH 25.0 L, RDW 19.1 H, MPV 9.7, Gran % 68.8, Lymphocytes % 26.0, Monocytes % 4.0, Eosinophils % 0.9, Basophils % 0.3, Absolute Granulocytes 6.1, Absolute Lymphocytes 2.3, Absolute Monocytes 0.4, Absolute Eosinophils 0.1, Absolute Basophils 0, PUBS MCHC 32.3 L , Phlebotomy Draw Site RIGHT RADIAL, Salicylates < 1.0, Acetaminophen < 10.0 L, Serum Alcohol < 10.0 03/18/17 1832: Salicylates Cancelled, Acetaminophen Cancelled Microbiology 03/18 1830 URINE ROUT: Urine Culture - RECD Disposition Summary Disposition Principal Diagnosis: Drug overdoses in a suicidal attempt Probable depression Additional Diagnosis: None Discharge Disposition: transfer to Inpatient Psychiatry Discharge Instructions General Discharge Information Code Status: Full Code Patient's Diet: As tolerated Patient's Activity: Tolerated Follow-Up Instructions/Appts: Follow-up by psychiatry and myself when she is discharged Medications at Discharge Discharge Medications: Stop taking the following medications: Amoxicillin/Potassium Clav (Augmentin 875-125 Tablet) 875 MG-125 MG TABLET ORAL TWICE DAILY Qty = 20 Oxycodone HCl/Acetaminophen (Percocet 5-325 MG Tablet) 5 MG-325 MG TABLET ORAL 4 times daily as needed as needed for PAIN Qty = 10 Clindamycin HCl (Cleocin HCl) 300 MG CAPSULE ORAL THREE TIMES DAILY Qty = 30 Hydromorphone HCl (Dilaudid) 2 MG TABLET ORAL EVERY SIX HOURS NEEDED as needed for PAIN Qty = 20 Continue taking these medications: Ibuprofen (Ibuprofen) 800 MG TABLET 1 Tablet ORAL 4 TIMES A DAY as needed for pain Qty = 90 Start taking the following new medications: Ferrous Sulfate (Ferrous Sulfate) 325 MG (65 MG IRON) TABLET.DR 325 Milligram ORAL THREE TIMES DAILY Days = 30 No Refills Comments: Last Taken:03/19/17 Time:1540 Calcium Carbonate/Vitamin D3 (Calcium + Vitamin D Tablet) 600 MG-200 TABLET 1 Tablet ORAL DAILY Days = 14 No Refills Cholecalciferol (Vitamin D3) 1,000 UNIT TABLET 1,000 International Unit ORAL DAILY Days = 30 No Refills Comments: Last Taken:NOT GIVEN IN THE HOSPITAL IN THIS FORM Time: Copies To: MARY ASHRAF,CRISTA Dyson; CHAPARRITA ASHRAF,SAMMIE Mason MD Review Statement Documenting Attending: SAMMIE CHEATHAM MD
== END 2017-03-19 20:41 | DRG 812 ==
LOC: ERH 18:18 → ERHI 22:55 → 1NO 22:55 → ENRESERV 23:16 → 1NO 03-19 01:36 → ENPENDDIS 03-19 15:55 → 1NO 03-19 20:41
PROVIDERS: Emergency Medicine; Internal Medicine; ADMIT Internal Medicine
DX: T39.312A Poisoning by propionic acid derivatives, intentional self-harm, initial encounter (principal); T45.0X2A Poisoning by antiallergic and antiemetic drugs, intentional self-harm, initial encounter; F32.9 Major depressive disorder, single episode, unspecified; E83.51 Hypocalcemia; Y92.008 Other place in unspecified non-institutional (private) residence as the place of occurrence of the external cause
CPT/HCPCS: ERO; 36415; 80307; 82436; 87086; 93005; 93010; 96360; 96361; 99291; G0480; J0610; J1650; J7042

== ENCOUNTER 2017-03-19 20:53 | Inpatient (IN) | payer OTHER ==
[~2017-03-19] VITALS: Ht 160 cm; Wt 92.1 kg
[~2017-03-19 20:53] MED LIST changes: +CALCIUM + VITA1 EAC1 PO; +FERROUS SULFAT325 M2 PO; +HYDROXYZINE HCL25 M2 PO; +LEXAPRO5 M1 PO; +TRAZODONE HCL50 M1 PO; +VITAMIN D31000 UNI2 PO
[2017-03-19] MEDS ORDERED: HAIR, SKIN & N1 EACH PO (21:38)
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
--- NOTE | 2017-03-20 05:10 | NUR ---
PATIENT SLEPT ALL NIGHT.
[2017-03-20 08:05] VITALS: BP 134/98
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
--- NOTE | 2017-03-20 11:30 | NUR ---
Patient is A&O X 3, compliant with medication and group therapies.Patient continues to be reclusive in her room on bed rest, mood and affect are stable and depressed/flat. Patient report poor night sleep and appetite, minimal peers and staff interaction, took care of her personal hygiene and ADLs, and denies thought of self-harm and to someone else.
[2017-03-20 12:33] VITALS: BP 145/90
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
[2017-03-20 16:15] VITALS: BP 145/91
--- NOTE | 2017-03-20 17:28 | NUR ---
PT IS CALM,C OOPERATIVE WITH STAFF AND PEERS, AND COMPLIANT WITH UNIT RULES. ISOLATIVE/WITHDRAWN, SPENDING THE MAJORITY OF TIME IN PT ROOM OUT OF [place]. MOOD IS STABLE, AFFECT IS EUTHYMIC, COMMUNICATION IS ORGANIZED AND APPEARS NORMAL IN ALL RESPECTS, AND APPETITE IS REDUCED. PT DENIES SI AT THIS TIME.
[2017-03-20 19:46] VITALS: BP 149/92
[2017-03-21 07:52] VITALS: BP 125/83
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
--- NOTE | 2017-03-21 11:48 | NUR ---
PT IS COMPLIANT AND COOPERATIVE WITH UNIT RULES. PT IS OUT IN THE COMMUNITY INTERACTING AT TIMES WITH STAFF AND PEERS. PT IS A LITTLE ISOALTIVE IN ROOM THIS MORNING STATING SHE WAS FEELING DIZZY. PT PRESENTS TEARFUL AND DEPRESSED ABOUT HER LIVING SITUATION AND HER . PT ENCOURAGED TO TALK TO BUSINESS DIRECTOR TO HELP WITH PROBLEMS AT HOME. PT DENIES SI THOUGHTS AT THIS TIME.
[2017-03-21 12:15] VITALS: BP 147/97
[2017-03-21 16:19] VITALS: BP 153/93
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
[2017-03-21 19:50] VITALS: BP 149/89
--- NOTE | 2017-03-21 20:01 | NUR ---
PT HAS BEEN QUIET AND WITHDRAWN. SHE HAS LIMITED CONVERSATIONS WITH PEERS BUT HAS BEEN PULLED OUT TO FREQUENTLY TALK WITH STAFF/DRS/SILVANA/SW.. PT HAD A VISIT FROM A DCF WORKER AND WAS HOPING TO HAVE A VISIT TODAY WITH HER 4 YEAR OLD CHILD. MAIN CONCERN FROM DCF WAS IF SHE WAS STABLE ENOUGH TO HANDLE A VISIT WITH HER CHILD. PT IS BEING CLOSELY OBSERVED FOR CHANGES IN SI. NO THOUGHTS OF SI HAVE BEEN REPORTED WHEN ASKED BY STAFF.
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
[2017-03-22 07:59] VITALS: BP 133/76
--- NOTE | 2017-03-22 10:17 | CP SOUTH PROGRESS NOTE PSYCH ---
Psych (Inpt) Progress Note Progress Note Include the following elements, when applicable: Involvement in the active treatment of the patient with behavioral observations of the patient and the patient's response to the treatment. Review of the ongoing treatment process in the context of the treatment plan. Indication of how multi-disciplinary staff members are carrying out the treatment plan. Plans for future interventions and recommendations for revision of the treatment plan. Liaison with other physicians/providers. Progress Note: I discussed this patient's progress to date, current mental status, treatment process in the context of the treatment plan, and discharge planning with staff/ team in the daily morning inpatient team meeting. I also met with the patient myself in individual session. Current Medications Sig/Maria Del Rosario Start time Last Medication Dose Route Stop Time Status Admin Acetaminophen 650 MG Q8P PRN 03/20 1245 AC PO Calcium/Vitamin D 1 TAB DAILY 03/20 1000 AC 03/22 PO 0930 Cholecalciferol 1,000 IU DAILY 03/20 1000 AC 03/22 PO 0930 Escitalopram Oxalate 10 MG DAILY 03/21 1000 AC 03/22 PO 0930 Ferrous Sulfate 325 MG TID 03/20 1000 AC 03/22 PO 0930 Hydroxyzine HCl 25 MG Q6-PRN PRN 03/19 2245 AC PO Multivitamins 1 TAB DAILY 03/20 1000 AC 03/22 PO 0930 Nystatin 1 DAVID BID 03/20 1403 AC 03/22 TOP 0930 Ondansetron HCl 4 MG ONE TIME ONE 03/22 0945 DC 03/22 IM 03/22 0946 1003 Trazodone HCl 50 MG AT BEDTIME NEED.. 03/19 2245 AC 03/21 PO 2150 Vital Signs Date Time Temp Pulse Resp B/P B/P Pulse O2 O2 Flow FiO2 Mean Ox Delivery Rate 03/22 1017 99.0 03/22 0945 99.7 03/22 0759 97.2 88 133/76 03/21 1950 99.0 99 16 149/89 06/05 1619 108 153/93 06/ 1215 92 147/97 Microbiology Date/Time Procedure - Status Source Growth 03/22 1025 Influenza Virus A & B Rapid Smear - COMP NASOPHARYN A: Chart, progress notes, labs, vital signs and medication list were reviewed. Patient with low-grade temp 99.0 to 99.7. Vital signs otherwise stable. No new lab results today. Reviewed patient's tx progress to date with nursing staff who reported patient had vomitted moderate amounts multiple times this morning and c/o of diahrrea, aches. Febrile. Zofran 4mg IM administered for vomitting at 10:03AM with good effect. Rapid flu swap resulted negative. Met with patient earlier this morning in room. Was observed resting, c/o aches, chills and n/v. Requested to sleep. Met again with patient this afternoon. She was visible on unit. Appeared oriented x 3, alert. Stated she had vomitted this morning, but no further episodes since IM Zofran. Reported continued chills and MATTSON. Informed of prn order of Tylenol. Affect was bright, gabriel in range. Shared that she saw her PCP Dr. Up today, that it was nice to see a familiar face. She appeared in better spirits. Stated her mood was "ok." Seemed better adjusted to unit. Appeared future oriented, focused on returning to children, planning to go to court to obtain full custody of 3-year-old daughter. Stated that OD and CO2 attempt was "stupid, " that she had wanted to get a reaction from her ex in order for him to be more involved in their daughter's life. Showed insight that this was not a healthy way to approach matter. Had realization that she could have killed herself which is not what she wanted; also expressed improved judgement that ex is not a good support and will likely never be involved in their daughter's life. Anticipates having a visit later with her friend Mavis who she refers to as her "sister." Was open to having her involved in her inpatient tx. Rates anxiety a 3/10 (10 being the worst). Rates depression a 4/10 (10 being the worst). Denies suicidal and homicidal ideation, plans and intent. Denied auditory and visual hallucinations. No evidence of paranoia or delusions. Thought process linear, goal-directed. Cognition grossly intact. Reports tolerating medications well Denies SEs. Agreeable to continue taking. P: 1. Cont. Lexapro 10mg daily for depression. 2. Arrange family meeting/phone conference with Mavis (friend). 3. Start Zofran ODT 4mg prn for n/v. 4. Cont. Tylenol prn for a aches/fever. 5. Dispo planning per primary team.
--- NOTE | 2017-03-22 11:32 | NUR ---
PT IS A & O X3, REPORTED FEELING NAUSEOUS AND THROWING UP SOON AFTER BREAKFAST PT WAS ABLE TO TOLERATE TAKING 0800H BRIEFLY. STARTED VOMITING ONCE AGAIN. AN ORDER FOR ZOFRAN 4MG/2MLIM SECURED AND GIVEN IN THE RIGHT DELTOID AT 1003H. LATER UPON ASSESSMENT BY MD, PT WAS PUT IN A PRIVATE ROOM A PRECAUTIONARY MEASURE. NO VOMITING ACTIVITY OR REPORT OF NAUSEA SO FAR FROM PT. NURSING CONTINUES TO MONITOR CLOSELY.
[2017-03-22 11:59] VITALS: BP 121/65
--- NOTE | 2017-03-22 12:32 | NUR ---
PT NOT VISIBLE IN THE MILIEU TODAY. PER NURSING, PT IS IN ROOM BECAUSE OF NOT FEELING WELL AND HAVING FLU LIKE SYMPTOMS. PT DID NOT ATTEND GROUPS TODAY. SHE HAS BEEN COOPERATIVE WITH STAFF AND DENIES THOUGHTS OF AYSE HERSELF WHEN ASKED.
--- NOTE | 2017-03-22 16:00 | SOCIAL WORKER PROG NOTE PSYCH ---
Social Work Progress Note Progress Note 3:20pm: SW met with pt. Pt stating that she is feeling better (physically) than she was feeling earlier today. Regarding MH sx, pt stated, "I'm very sad." She became tearful as she discussed stressors related to her most recent relationship (with her daughter's father), wanting to spend time with her daughter and return home. Pt identified her friend, "Mavis", as a primary support. "She's like my sister." Pt was in agreement with scheduling a family meeting, and identified Mavis as the person that she would like to attend the meeting. Pt stated that she is trying to avoid isolation and be out on the unit ([facility]). Pt is encourged to continue to utilize support from staff as needed.
[2017-03-22 16:11] VITALS: BP 130/95
--- NOTE | 2017-03-22 16:32 | SOCIAL WORKER PROG NOTE PSYCH ---
Social Work Progress Note Progress Note SW spoke with Deysi at [facility] regarding concurrent auth for this pt: # units: 3 start: 03/22 end: 03/24 review: 03/25 ref/auth #: [id number]
--- NOTE | 2017-03-22 18:18 | NUR ---
PT IS CALM, COOPERATIVE WITH STAFF AND PEERS, AND COMPLIANT WITH UNIT RULES. OFTEN IN MILIEU, THOUGH STAYING IN THE PERIPHERY. MOOD IS STABLE, AFFECT IS EUTHYMIC TO FULL RANGE, COMMUNICATION IS ORGANIZED AND APPEARS NORMAL IN ALL RESPECTS, AND APPETITE IS NORMAL. PT DENIES SI AT THIS TIME.
[2017-03-22 19:43] VITALS: BP 136/79
[2017-03-23 07:42] VITALS: BP 129/68
--- NOTE | 2017-03-23 10:54 | SOCIAL WORKER PROG NOTE PSYCH ---
Social Work Progress Note Progress Note 10:15am: DOMENIC met with pt. Pt stated that she was informed by her ex (Benjamin Rivas) that she has a court date on 03/28/17 regarding custody. She was unsure as to who she would contact regarding this. Pt reported that she has been feeling sad due to being away from her children. She denied SI. Pt signed JOSELO for a friend, Mavis Interiano. She was in agreement with scheduling a family session with her friend. Pt was also in agreement with attending IOP after d/c from . [facility] was contacted regarding the IOP schedule (no information was provided). Pt stated that she may be able to attend the IOP that meets on Mon, Wed and Fri from 1-4 but would like to discuss this further with Mavis during the meeting before committing. Pt stated that she is attending groups on [facility] and utilizing staff support, both which she finds helpful. DOMENIC will follow up with Ricardo Montes about a time that this conventional mortgage underwriter and pt can meet with her this afternoon. 10:58am: DOMENIC left for Mavis Interiano requesting a call back and provided call back number. Plan is to speak with Mavis to schedule a family meeting.
--- NOTE | 2017-03-23 11:10 | NUR ---
PT IS ATTENDING GROUPS AND IS COMPLIANT WITH HER MED REGIME. SHE DENIES SUICIDAL THOUGHTS BUT STATES SHE FEELS SAD THAT SHE IS NOT HOME WITH HER CHILDREN. PT IS CALM AND APPROPRIATE IN HER INTERACTIONS WITH STAFF AND PEERS
[2017-03-23 12:24] VITALS: BP 125/78
[2017-03-23 15:55] VITALS: BP 121/83
--- NOTE | 2017-03-23 16:00 | CP SOUTH PROGRESS NOTE PSYCH ---
Psych (Inpt) Progress Note Progress Note Include the following elements, when applicable: Involvement in the active treatment of the patient with behavioral observations of the patient and the patient's response to the treatment. Review of the ongoing treatment process in the context of the treatment plan. Indication of how multi-disciplinary staff members are carrying out the treatment plan. Plans for future interventions and recommendations for revision of the treatment plan. Liaison with other physicians/providers. Progress Note: I discussed this patient's progress to date, current mental status, treatment process in the context of the treatment plan, and discharge planning with staff/ team in the daily morning inpatient team meeting. I also met with the patient myself in individual session. Current Medications Sig/Maria Del Rosario Start time Last Medication Dose Route Stop Time Status Admin Acetaminophen 650 MG .STK-MED ONE 03/22 1932 DC PO 03/22 193 Acetaminophen 650 MG Q8P PRN 03/20 1245 AC 03/22 PO 1938 Calcium/Vitamin D 1 TAB DAILY 03/20 1000 AC 03/23 PO 0819 Cholecalciferol 1,000 IU DAILY 03/20 1000 AC 03/23 PO 0819 Escitalopram Oxalate 10 MG DAILY 03/21 1000 AC 03/23 PO 0819 Ferrous Sulfate 325 MG TID 03/20 1000 AC 03/23 PO 0819 Hydroxyzine HCl 25 MG Q6-PRN PRN 03/19 2245 AC PO Multivitamins 1 TAB DAILY 03/20 1000 AC 03/23 PO 0819 Nystatin 1 DAVID BID 03/20 1403 AC 03/22 TOP 2153 Ondansetron HCl 4 MG Q6-PRN PRN 03/22 1615 AC PO Trazodone HCl 50 MG AT BEDTIME NEED.. 03/19 2245 AC 03/21 PO 2150 Vital Signs Date Time Temp Pulse Resp B/P B/P Pulse O2 O2 Flow FiO2 Mean Ox Delivery Rate 03/23 1555 88 121/83 / 1224 88 125/78 06/ 0742 97.8 97 129/68 / 1943 98.5 83 136/79 06/06 1611 98.1 96 130/95 A: Chart, progress notes, labs, vital signs and medication list were reviewed. Vital signs within normal limits. Afebrile today. Met with patient this afternoon together with Nicolette Peter LCSW. Patient reported feeling "physically better" today. Denied n/v, chills and aches. C/o diarrhea. Presented future oriented, spoke of wanting to participate in IOP services post-discharge and eventually engage in couple's counseling with her ex , Benjamin, for the sake of their daughter. Again, reiterated that the event leading up to present admission was a "big mistake." Denied that behaviors were with intent to kill herself and rather were an attempt to get a "reaction" from her exBenjamin. Expressed motivation to work with [facility] and the court to regain custody of her daughter as Benjamin presently has temporary guardianship of her. Patient reported that she spoke to Benjamin and plans to return to their home as he will no longer be residing there. Informed patient that tx team will need to speak to him to verify this, and also that a family meeting will be arranged with her friend, Mavis, to discuss discharge and safety planning. Patient signed JOSELO for Benjamin and Mavis. Patient reported improved mood. Affect gabriel in range. Eye contact appropriate. Speech accented, normal in rate, tone and volume. Denied acute symptoms of depression/anxiety. Denied feeling worthless, hopeless, helpless. Reported feeling guilty over recent actions leading her here. Denied SI, HI, AVH. Thought process linear, goal directed. No evidence of paranoia/delusions. Cognition grossly intact. Described sleep and appetite as "good." Reported "better" energy level. Continues to tolerate medication well, denied SEs. Agreeable to continue taking. Attempted calling exBenjamin, however VM box was full. Will try again tomorrow for collateral and to clarify patient's housing situation post-discharge. Patient making slow progress with some improvement in mood. Continues to require inpatient hospitalization for safety, monitoring and stabilization given severity of suicide attempt. P: 1. Cont. same medications. 2. Start Immodium 2mg Q6H prn for diarrhea. 3. Arrange meeting with friend Mavis - see [employer] notes. 4. Dispo planning per primary team - Care IOP versus IOP.
--- NOTE | 2017-03-23 17:05 | SOCIAL WORKER PROG NOTE PSYCH ---
Social Work Progress Note Progress Note 3:20pm: Ricardo Montes APRN and this Sw met with pt. Discharge plans were discussed including this Sw attempt to reach pt's friend, Mavis Interiano, for a family meeting. Pt stated that her daughter's father (Jamee Rivas) has informed her of different dates regarding the upcoming court date. Pt reported improved mood as well as improved physical sx (as pt was not feeling well yesterday). She appeared motivated to continue with treatment after discharge from [facility]. Soledad and Ricardo Montes APRN attempted to reach LitoAidan Parrish to confirm whether pt will be able to return to the home, however, vm was full. In addition, attempt(s) will be made to clarify court date.
--- NOTE | 2017-03-23 17:50 | NUR ---
PT IS CALM, COOPERATIVE WITH STAFF AND PEERS, AND COMPLIANT WITH UNIT RULES. OFTEN IN [place]IE[place], INTERACTING WELL WITH OTHERS. MOOD IS STABLE, AFFECT APPEARS EUTHYMIC TO FULL RANGE, COMMUNICATION IS ORGANIZED AND APPEARS NORMAL IN ALL RESPECTS, AND APPETITE IS NORMAL. PT DENIES SI AT THIS TIME.
[2017-03-23 19:52] VITALS: BP 119/76
[2017-03-24 08:10] VITALS: BP 141/79
--- NOTE | 2017-03-24 10:29 | NUR ---
PT IS CALM, COOPERATIVE WITH STAFF AND PEERS, AND COMPLIANT WITH UNIT RULES. OFTEN INN MILIEU, INTERACTING WELL WITH OTHERS. MOOD IS STABLE, AFFECT IS EUTHYMIC TO FULL RANGE, COMMUNICATION IS ORGANIZED AND APPEARS NORMAL IN ALL RESPECTS, AND APPETITE IS NORMAL. PT DENIES SI AT THIS TIME.
[2017-03-24 12:26] VITALS: BP 130/69
--- NOTE | 2017-03-24 14:02 | CP SOUTH PROGRESS NOTE PSYCH ---
Psych (Inpt) Progress Note Progress Note Include the following elements, when applicable: Involvement in the active treatment of the patient with behavioral observations of the patient and the patient's response to the treatment. Review of the ongoing treatment process in the context of the treatment plan. Indication of how multi-disciplinary staff members are carrying out the treatment plan. Plans for future interventions and recommendations for revision of the treatment plan. Liaison with other physicians/providers. Progress Note: I discussed this patient's progress to date, current mental status, treatment process in the context of the treatment plan, and discharge planning with staff/ team in the daily morning inpatient team meeting. I also met with the patient myself in individual session. Current Medications Sig/Maria Del Rosario Start time Last Medication Dose Route Stop Time Status Admin Acetaminophen 650 MG Q8P PRN 03/20 1245 AC 03/22 PO 1938 Calcium/Vitamin D 1 TAB DAILY 03/20 1000 AC 03/24 PO 0928 Cholecalciferol 1,000 IU DAILY 03/20 1000 AC 03/24 PO 0928 Escitalopram Oxalate 10 MG DAILY 03/21 1000 AC 03/24 PO 0928 Ferrous Sulfate 325 MG TID 03/20 1000 AC 03/24 PO 0928 Hydroxyzine HCl 25 MG Q6-PRN PRN 03/19 2245 AC PO Loperamide HCl 2 MG Q6P PRN 03/23 1630 AC PO Multivitamins 1 TAB DAILY 03/20 1000 AC 03/24 PO 0929 Nystatin 1 DAVID BID 03/20 1403 AC 03/24 TOP 0929 Ondansetron HCl 4 MG Q6-PRN PRN 03/22 1615 AC PO Trazodone HCl 50 MG AT BEDTIME NEED.. 03/19 2245 AC 03/21 PO 2150 Vital Signs Date Time Temp Pulse Resp B/P B/P Pulse O2 O2 Flow FiO2 Mean Ox Delivery Rate 03/24 1226 98 130/69 / 0810 98.5 94 141/79 06/ 1952 98.3 82 119/76 06/07 1555 88 121/83 A: Chart, progress notes, labs, vital signs and medication list were reviewed. Vital signs within normal limits. A phone conference was held with the patient, her friend, Mavis, Nicolette Peter, MARGE and Benji. Patient's treatment progress to date, medication regimen, level of safety and discharge plans were reviewed and discussed. Mavis expressed that the patient's overdose and CO2 attempt "shocked" her. Mavis stated it seems like an (isolated) impulsive act; that in the 20 years she has known the patient she has never acted like that. Mavis stated that the patient's ex, Benjamin, has been unsupportive for a long time, not involved in his daughter's or the patient 's life, and served as a major stressor for the patient after the of her mother and while carrying for her 3 children, in addition to her ex's disabled brother. Mavis, who visited the patient, a few nights ago, expressed that she seemed to be in a better place. She stated that she had no safety concerns surrounding the patient's discharge and is in favor of discharge plan to [facility]. Mavis also related that she will be staying over the patient's house following discharge until she completes outpatient tx. Informed Mavis that patient will be discharged on Tuesday and has a 12:45PM IOP intake scheduled. Mavis confirmed that she will pharmacy picking tech the patient from IOP intake. Both the patient and Mavis were in favor of discharge plan. Patient reports mood as "good." Anticipates visit later today from daughter. States she feels supported by her friend/sister, Mavis. Eye contact appropriate. Affect gabriel in rage, non-labile. Denies physical complaints. Denies suicidal and homicidal ideation. Identifies protective factors of her 3 children and friend/sister Mavis. Denies auditory and visual hallucinations. No evidence of paranoia or delusions. Thought process linear, goal directed. Thought content appropriate. Cognition grossly intact. P: 1. Cont. monitoring patient on unit for safety, mood and SI. 2. Supervised staff visits with ex, Benjamni, and daughter. 3. Cont. Lexapro 10mg daily for depression. 4. Discharge on 03/28/17, with f/u at [facility] for intake at 12:45PM.
[2017-03-24 16:07] VITALS: BP 139/90
--- NOTE | 2017-03-24 18:32 | SOCIAL WORKER PROG NOTE PSYCH ---
Social Work Progress Note Progress Note 1:35pm: Ricardo Montes APRN, M. Nathan, medical student and this SW met with pt. Session also included pt's friend, Mavis, by phone. Progress in treatment was reviewed and discharge plans were discussed. Pt's friend reported that pt had "never done that before" referring to the suicide attempt and she did not have any concerns about the pt being discharged. Mavis stated that she and other friends would take turns staying with Sharlene in order to avoid her being alone. Pt's anticipated discharge date is 03/28/17 and she accepted an IOP intake date/ time of 03/28/17 at 12:45pm at [facility]. Pt appeared motivated to continue with treatment after discharing from [facility] and stated, "I'm very optimistic. I look forward to taking all the steps [in treatment]." Upon inquiry by the pt and discussion with Ricardo Montes/approval by charge nurse, pt and this SW contacted her daughter's father by phone regarding visitation from the daughter. He stated that the court order states that she cannot spend time with her daughter until the court date on 04/04/17. This (and case) to be reviewed further tomorrow with treatment team.
[2017-03-24 20:11] VITALS: BP 129/81
--- NOTE | 2017-03-24 21:12 | NUR ---
PT IS VISIBLE ON UNIT, WATCHING TV AND SOCIALIZING WITH PEERS. VERY PLEASANT AND COOPERATIVE. NO COMPLAINTS OR SI REPORTED. PT HAS A STABLE MOOD AND FULL RANGE AFFECT.
[2017-03-25 07:51] VITALS: BP 132/80
[2017-03-25 12:21] VITALS: BP 134/73
--- NOTE | 2017-03-25 14:22 | NUR ---
PT IS STABLE WITH FULL RANGE OF AFFECT. PT IS BRIGHT AND BUBBLY TODAY AND INTERACTING APPROPRIATELY WITH PEERS/STAFF. PT HAS GONE TO ALL GROUPS TODAY AND CONTRIBUTES POSITIVELY. REPORTS TRYING TO FOCUS LESS ON EX BOYFRIEND AND MORE ON HERSLEF AND HER CHILDREN. VS ARE STABLE AND DENIES ANY SI/HI TO THIS MHW.
--- NOTE | 2017-03-25 16:12 | SOCIAL WORKER PROG NOTE PSYCH ---
Social Work Progress Note Progress Note Completed and Faxed [facility] IOP transfer.
[2017-03-25 16:15] VITALS: BP 129/75
--- NOTE | 2017-03-25 16:36 | CP SOUTH PROGRESS NOTE PSYCH ---
Psych (Inpt) Progress Note Progress Note Include the following elements, when applicable: Involvement in the active treatment of the patient with behavioral observations of the patient and the patient's response to the treatment. Review of the ongoing treatment process in the context of the treatment plan. Indication of how multi-disciplinary staff members are carrying out the treatment plan. Plans for future interventions and recommendations for revision of the treatment plan. Liaison with other physicians/providers. Progress Note: I discussed this patient's progress to date, current mental status, treatment process in the context of the treatment plan, and discharge planning with staff/ team in the daily morning inpatient team meeting. I also met with the patient myself in individual session. Current Medications Sig/Maria Del Rosario Start time Last Medication Dose Route Stop Time Status Admin Acetaminophen 650 MG Q8P PRN 03/20 1245 AC 03/22 PO 1938 Calcium/Vitamin D 1 TAB DAILY 03/20 1000 AC 03/25 PO 0810 Cholecalciferol 1,000 IU DAILY 03/20 1000 AC 03/25 PO 0810 Escitalopram Oxalate 10 MG DAILY 03/21 1000 AC 03/25 PO 0809 Ferrous Sulfate 325 MG TID 03/20 1000 AC 03/25 PO 1531 Hydroxyzine HCl 25 MG Q6-PRN PRN 03/19 2245 AC PO Loperamide HCl 2 MG Q6P PRN 03/23 1630 AC PO Multivitamins 1 TAB DAILY 03/20 1000 AC 03/25 PO 0810 Ondansetron HCl 4 MG Q6-PRN PRN 03/22 1615 AC PO Trazodone HCl 50 MG AT BEDTIME NEED.. 03/19 2245 AC 03/21 PO 2150 Vital Signs Date Time Temp Pulse Resp B/P B/P Pulse O2 O2 Flow FiO2 Mean Ox Delivery Rate 03/25 1615 70 129/75 03/25 1221 85 134/73 03/25 0751 99.0 87 132/80 03/24 2011 98.6 79 129/81 A: Chart, progress notes, labs, vital signs and medication list were reviewed. Vital signs within normal limits. Met with patient this evening. She reported she did not visit with her daughter last night after speaking to her ex, Benjamin, who reported she cannot have visitation with daughter until going to court per DCF. Patient stated she was accepting of this and is now more motivated to work towards tx to earn custody back. She reports feeling hopeful for upcoming court date. Reported feeling supported by her friend Mavis and looks forward to participating in [facility]. She denied suicidal and homicidal ideation, plans, intent. Denied homicidal ideation. Denied AVH, delusions and paranoia. Thought process linear, goal- directed. Described mood as "better." Affect brighter, non-labile. Eye contact appropriate. Speech normal in rate, tone and volume. Reported sleeping well. Reported normal appetite. She offered no complaints. P: 1. Cont. monitoring on unit for safety, mood, SI. 2. Cont. same medications. 3. Discharge Tuesday with f/u at [facility]. Intake scheduled for 12:45PM.
--- NOTE | 2017-03-25 17:07 | SOCIAL WORKER PROG NOTE PSYCH ---
Social Work Progress Note Progress Note Clinical submitted via [facility] for continued inpt stay
--- NOTE | 2017-03-25 18:20 | NUR ---
PT IS CALM, COOPERATIVE WITH STAFF AND PEERS, AND COMPLIANT WITH UNIT RULES. OFTEN IN MIL[place], INTERACTING WELL WITH OTHERS. MOOD IS STABLE, AFFECT IS EUTHYMIC TO FULL RANGE, COMMUNICATION IS ORGANIZED AND APPEARS NORMAL IN ALL RESPECTS, AND APPETITE IS NORMAL. PT DENIES SI AT THIS TIME.
--- NOTE | 2017-03-25 18:39 | SOCIAL WORKER PROG NOTE PSYCH ---
Social Work Progress Note Progress Note 3:45pm: Mak Mason and Soledad met with pt. Pt's progress was discussed. She reported improved mood and feeling motivated to follow through with treatment recommendations upon discharge from the inpatient unit. Pt discussed yesterday' s family session in which her close friend, Mavis, participated. She stated that Mavis would be sharing her recent hospitalization with three other close friends. She anticipates visiting with three of her friends this evening. Pt denied SI/HI, she denied any issues with appetite or sleep. Pt was in agreement with the anticipated discharge date of 03/28/17 and plans to attend the IOP intake 12:45pm at [facility] on that date.
[2017-03-25 20:04] VITALS: BP 145/86
--- NOTE | 2017-03-26 04:57 | NUR ---
PT SLEPT. PT EUTHYMIC.
[2017-03-26 08:07] VITALS: BP 130/73
--- NOTE | 2017-03-26 10:18 | CP SOUTH PROGRESS NOTE PSYCH ---
Psych (Inpt) Progress Note Progress Note Include the following elements, when applicable: Involvement in the active treatment of the patient with behavioral observations of the patient and the patient's response to the treatment. Review of the ongoing treatment process in the context of the treatment plan. Indication of how multi-disciplinary staff members are carrying out the treatment plan. Plans for future interventions and recommendations for revision of the treatment plan. Liaison with other physicians/providers. Progress Note: I discussed this patient's progress to date, current mental status, treatment process in the context of the treatment plan, and discharge planning with staff/ team in the daily morning inpatient team meeting. I also met with the patient myself in individual session. pt reports feeling better. Affect is improved. Hopefula dn motivated. Vital Signs Date Time Temp Pulse Resp B/P B/P Pulse O2 O2 Flow FiO2 Mean Ox Delivery Rate 03/26 807 98.9 90 130/73 03/25 2004 98.8 86 145/86 03/25 1615 70 129/75 03/25 1221 85 134/73 pt is alert, oriented, cooperative w interview. Voice is normal in tone and volume. Mood is described as good, affect is reactive. No current si/hi, no voices, no overt delusisons. More motivated and hopeful IJ improved A/P Pt is improving continue with current meds Current Medications Sig/Maria Del Rosario Start time Last Medication Dose Route Stop Time Status Admin Acetaminophen 650 MG Q8P PRN 03/20 1245 AC 03/22 PO 1938 Calcium/Vitamin D 1 TAB DAILY 03/20 1000 AC 03/26 PO 0843 Cholecalciferol 1,000 IU DAILY 03/20 1000 AC 03/26 PO 0844 Escitalopram Oxalate 10 MG DAILY 03/21 1000 AC 03/26 PO 0844 Ferrous Sulfate 325 MG TID 03/20 1000 AC 03/26 PO 0844 Hydroxyzine HCl 25 MG Q6-PRN PRN 03/19 2245 AC PO Loperamide HCl 2 MG Q6P PRN 03/23 1630 AC PO Multivitamins 1 TAB DAILY 03/20 1000 AC 03/26 PO 0844 Nystatin 1 DAVID TID 03/25 2200 AC 03/26 TOP 0844 Ondansetron HCl 4 MG Q6-PRN PRN 03/22 1615 AC PO Trazodone HCl 50 MG AT BEDTIME NEED.. 03/19 2245 AC 03/21 5355
[2017-03-26 12:03] VITALS: BP 137/72
--- NOTE | 2017-03-26 13:59 | NUR ---
MENTIONED FEELING A LITTLE OFF POSSIBLY DUE TO MEDS. EXPRESSED THE IDEA THAT SHE MAY BE . WILL ASK PSYCHIATRIST ABOUT NEED FOR TEST. MOOD IS STABLE, FULL RANGE OF AFFECT. DENIED THOUGHTS OF SELF HARM WHEN ASKED
[2017-03-26 15:24] VITALS: BP 123/79
[2017-03-26 20:39] VITALS: BP 133/72
--- NOTE | 2017-03-26 21:26 | NUR ---
PT IS PLEASANT, COMPLIANT AND APPEARS TO BE STABLE. THERE HAS BEEN NO ISSUES OR REPORTS OF DISTRESS.
--- NOTE | 2017-03-27 06:05 | NUR ---
PT EUTHYMIC. PT WITH VISITOR LAST NIGHT. PT SOCIAL. PT SLEPT.
[2017-03-27 08:04] VITALS: BP 123/73
--- NOTE | 2017-03-27 09:52 | CP SOUTH PROGRESS NOTE PSYCH ---
Psych (Inpt) Progress Note Progress Note Include the following elements, when applicable: Involvement in the active treatment of the patient with behavioral observations of the patient and the patient's response to the treatment. Review of the ongoing treatment process in the context of the treatment plan. Indication of how multi-disciplinary staff members are carrying out the treatment plan. Plans for future interventions and recommendations for revision of the treatment plan. Liaison with other physicians/providers. Progress Note: I discussed this patient's progress to date, current mental status, treatment process in the context of the treatment plan, and discharge planning with staff/ team in the daily morning inpatient team meeting. I also met with the patient myself in individual session. Pt reports feeling better, She says she slept well last night aadn trazodone helped her a lot. She had the best sleep in years, she would like to have it [place]. Vital Signs Date Time Temp Pulse Resp B/P B/P Pulse O2 O2 Flow FiO2 Mean Ox Delivery Rate 03/27 0804 97.9 91 123/73 03/26 2039 99.5 86 133/72 03/26 1524 93 123/79 03/26 1203 94 137/72 Patient is alert, oriented, cooperative with the interview. Well related. No psychomotor agitation or retardation. Mood described as good affect appropriate and reactive. Thought process organized. She is denying any suicidal or homicidal ideation. No delusions. No hallucinations. Insight and judgment much improved. A/P Patient is improved. She looks forward for discharge tomorrow. Continue with current medication. Current Medications Sig/Maria Del Rosario Start time Last Medication Dose Route Stop Time Status Admin Acetaminophen 650 MG Q8P PRN 03/20 1245 AC 03/22 PO 1938 Calcium/Vitamin D 1 TAB DAILY 03/20 1000 AC 03/26 PO 0843 Cholecalciferol 1,000 IU DAILY 03/20 1000 AC 03/26 PO 0844 Escitalopram Oxalate 10 MG DAILY 03/21 1000 AC 03/26 PO 0844 Ferrous Sulfate 325 MG TID 03/20 1000 AC 03/26 PO 2229 Hydroxyzine HCl 25 MG Q6-PRN PRN 03/19 2245 AC PO Loperamide HCl 2 MG Q6P PRN 03/23 1630 AC PO Multivitamins 1 TAB DAILY 03/20 1000 AC 03/26 PO 0844 Nystatin 1 DAVID TID 06/09 2200 AC 03/26 TOP 2230 Ondansetron HCl 4 MG Q6-PRN PRN 03/22 1615 AC PO Trazodone HCl 50 MG AT BEDTIME NEED.. 03/19 2245 AC 03/26 PO 5623
[2017-03-27 12:14] VITALS: BP 135/69
--- NOTE | 2017-03-27 12:49 | NUR ---
PT VISIBLE IN THE [place]IEU THROUGHOUT THE DAY. HER GOAL WAS TO MAKE A LIST OF FUN ACTIVITIES TO STAY BUSY WHEN SHE DISCHARGES. PT HAS BEEN ACTIVELY PARTICIPATING IN GROUPS, AND POSITIVELY INTERACTING WITH PEERS. PT APPEARS TO BE A LOT BETTER THAN WHEN SHE CAME IN A WEEK AGO. PT HAS BEEN COOPERATIVE WITH STAFF DIRECTION, AND DENIES HAVING THOUGHTS TO HURT HERSELF WHEN ASKED.
[2017-03-27 15:47] VITALS: BP 146/70
[2017-03-27 19:57] VITALS: BP 139/76
--- NOTE | 2017-03-27 20:31 | NUR ---
PT HAS BEEN SOCIAL WITH PEERS AND ENJOYED A VISIT WITH FAMILY AND FRIENDS SHE HAS BEEN IN A POSITIVE MOOD AND CAN BE FUNNY AND LAUGHS WITH OTHERS.
--- NOTE | 2017-03-28 04:56 | NUR ---
SLEPT WELL OVERNIGHT WITH NO COMPLAINTS OFFERED.
[2017-03-28 07:42] VITALS: BP 115/66
--- NOTE | 2017-03-28 10:26 | CP SOUTH PROGRESS NOTE PSYCH ---
Psych (Inpt) Progress Note Progress Note Include the following elements, when applicable: Involvement in the active treatment of the patient with behavioral observations of the patient and the patient's response to the treatment. Review of the ongoing treatment process in the context of the treatment plan. Indication of how multi-disciplinary staff members are carrying out the treatment plan. Plans for future interventions and recommendations for revision of the treatment plan. Liaison with other physicians/providers. Progress Note: I discussed this patient's progress to date, current mental status, treatment process in the context of the treatment plan, and discharge planning with staff/ team in the daily morning inpatient team meeting. I also met with the patient myself in individual session. Current Medications Sig/Maria Del Rosario Start time Last Medication Dose Route Stop Time Status Admin Acetaminophen 650 MG Q8P PRN 03/20 1245 AC 03/22 PO 1938 Calcium/Vitamin D 1 TAB DAILY 03/20 1000 AC 03/28 PO 0919 Cholecalciferol 1,000 IU DAILY 03/20 1000 AC 03/28 PO 0919 Diphenhydramine HCl 50 MG ONCE ONE 03/27 2030 DC 03/27 PO 03/27 2031 2203 Escitalopram Oxalate 10 MG DAILY 03/21 1000 AC 03/28 PO 0919 Ferrous Sulfate 325 MG TID 03/20 1000 AC 03/28 PO 0919 Hydroxyzine HCl 25 MG Q6-PRN PRN 03/19 2245 AC PO Loperamide HCl 2 MG Q6P PRN 03/23 1630 AC PO Multivitamins 1 TAB DAILY 03/20 1000 AC 03/28 PO 0919 Nystatin 1 DAVID TID 03/25 2200 AC 03/28 TOP 0919 Ondansetron HCl 4 MG Q6-PRN PRN 03/22 1615 AC PO Trazodone HCl 50 MG AT BEDTIME NEED.. 03/19 2245 AC 03/27 PO 2333 Vital Signs Date Time Temp Pulse Resp B/P B/P Pulse O2 O2 Flow FiO2 Mean Ox Delivery Rate 03/28 0742 98.4 81 115/66 03/27 1957 98.6 86 139/76 03/27 1547 97 146/70 03/27 1214 92 135/69 A: Chart, progress notes, labs, vital signs and medication list were reviewed. Vital signs within normal limits. Met with patient on the date of discharge. She reported having positive visits this weekend from her friends. Stated she also spoke to friend, Mavis, via phone who confirmed she would pick the patient up following IOP intake today post-discharge. Stated her mood is "a lot better." Affect full-range, appropriate, non-labile. Eye contact appropriate. Speech normal in rate, tone and volume. She offered no complaints. Denied feeling hopeless, helpless, worthless and guilty. Rated anxiety a 2/10 (10 being the worst). Rated depression a 0/10 (being the worst). Reported feeling well supported by her friends. Expressed motivation to attend [facility] and to regain custody of her daughter, who presently is in the temporary custody of her ex, Benjamin. She also stated that she would like to find a job in time. She denied active and passive suicidal ideation, plans and intent. Denied homicidal ideation, auditory and visual hallucinations. No evidence of paranoia or vivian delusions. Reported her sleep is good. Reported appetite is good. Stated her energy level is "back to normal." Thought process linear, goal-directed. Cognition grossly intact. She reported tolerating all medications well and denied untoward effects. She reported feeling safe and ready for discharge. P: -Discharge today to home and into the care of friend, Mavis. -F/u at [facility] for intake today at 12:45PM. -Patient advised that in the event of an emergency to call [phone]/go to nearest emergency department. Patient verbalized understanding of all instructions. -Discharge prescriptions were e-prescribed to [facility] ([facility]) in [place], [place] today.
--- NOTE | 2017-03-28 10:46 | NUR ---
WILL BE DISCHARGED TODAY TO [facility] WITH 12:45 INTAKE AT [facility]. MOOD IS STABLE, FULL RANGE OF AFFECT. DENIED THOUGHTS OF SELF HARM WHEN ASKED. GIVEN EDUCATION ON SUICIDE PREVENTION AND DEPRESSION
[2017-03-28] MEDS ORDERED: NYSTATIN15 G1 TOP (10:59)
[2017-03-28] MEDS ORDERED: TRAZODONE HCL50 M1 PO (10:59)
[2017-03-28] MEDS ORDERED: LEXAPRO10 M1 PO (10:59)
--- NOTE | 2017-03-28 11:09 | DISCHARGE SUMMARY REPORT-PSYCH ---
Visit Information Visit Dates/Diagnosis' Admission Date: 03/19/17 Discharge Date: 03/28/17 Reason for Admission: Patient was admitted to [facility] on 03/18/17 status-post overdose on various medications (Dilaudid, Motrin, and Benadryl) with car running inside a closed garage in a suicide attempt secondary to learning that her recent boyfriend/father of her daughter was having an affair with another woman. She was stabilized on the medical floor and then transferred to [facility] for psychiatric admission. Psy Discharge Primary Diag: MDD Psy Discharge Secondary Diag: PTSD; Unspecified anxiety disorder; Asthma; s/p breast reduction. Hospital Course Significant Lab Findings: Lab Hct 35.2 % L 03/19/17 0714 Hgb 11.5 G/DL L 03/19/17 0714 MCH 25.4 PG L 03/19/17 0714 MCV 77.7 FL L 03/19/17 0714 RDW 19.4 % H 03/19/17 0714 Urine Opiates Screen > 4000.00 NG/ML H 03/18/17 1835 Urine Test NEGATIVE 10/24/10 1018 Urine Test NEGATIVE 10/21/16 1027 Course Complications: None. Consultations: The patient was seen for admission history and physical by cyber security specialist Dr. Fadi pU. Please see his not for additional information. Allergies: Coded Allergies: tree nut (Severe, ANAPHYLAXIS 03/18/17) REACTION NOT LISTED DURING PRE-SX INTERVIEW cat dander (RASH, COUGH, DYSPNEA 03/18/17) lactose (GI UPSET 03/18/17) pineapple (RASH/ITCHY TONGUE GOES NUMB AND SORES IN MOUTH 03/18/17) shrimp (ANAPHYLAXIS 03/18/17) Hospital Course/TX Response: The patient was monitored on the unit for safety, mood, and suicidal ideation. She participated in multimodal treatments on the unit. She was started on Lexapro 5mg daily for depression/anxiety prior to [facility] admission while monitored on the medical floor. She reported tolerating this medication well and was agreeable to increasing to 10mg daily for depression/anxiety. Trazodone 50mg QHS prn was started for insomnia, which was later changed to scheduled on discharge given positive effect. The patient denied untorward medication effects. During the hospital course, the patient's mood and affect improved. She consistently denied suicidal ideation and homicidal ideation. As her depression gradually lifted, she identified that the cause of her overdose was rooted in poor judgement. She shared feeling angry at her ex-boyfriend due to him not being actively invovled in their young daughter's life. She stated that she had hoped to get his attention by acting out, and that this resulting in him being more involved in his daughter life. Her insight and judgement improved during hospitalization. She was able to identify positive supports in her life who she would like to engage with going forward. A phone conference was held with the patient, her friend, Mavis, Nicolette Peter, MARGE and Benji. The patient's treatment progress, medication regimen, level of safety and discharge plans were reviewed and discussed. Mavis expressed that the patient's overdose and CO2 attempt "shocked" her. Mavis stated it seemed like an (isolated) impulsive act; that in the 20 years she has known the patient she has never acted like that. Mavis stated that the patient's ex, Benjamin, has been unsupportive for a long time, not involved in his daughter's or the patient 's life, and served as a major stressor for the patient after the of her mother and while carrying for her 3 children, in addition to her ex's disabled brother. Mavis, who visited the patient, a few nights ago, expressed that she seemed to be in a better place. She stated that she had no safety concerns surrounding the patient's discharge and is in favor of discharge plan to IOP. Mavis also related that she will be staying over the patient's house following discharge until she completes outpatient tx. Informed Mavis that patient will be discharged on Tuesday and has a 12:45PM IOP intake scheduled. Mavis confirmed that she will apple picker the patient from IOP intake. Both the patient and Mavis were in favor of discharge plan. On the date of discharge, 03/28/17, the patient reported having positive visits this weekend from her friends. Stated she also spoke to friend, Mavis, via phone who confirmed she would pick the patient up following IOP intake today post-discharge. Stated her mood is "a lot better." Affect full-range, appropriate, non-labile. Eye contact appropriate. Speech normal in rate, tone and volume. She offered no complaints. Denied feeling hopeless, helpless, worthless and guilty. Rated anxiety a 2/10 (10 being the worst). Rated depression a 0/10 (being the worst). Reported feeling well supported by her friends. Expressed motivation to attend [facility] and to regain custody of her daughter, who presently is in the temporary custody of her ex, Benjamin. She also stated that she would like to find a job in time. She denied active and passive suicidal ideation, plans and intent. Denied homicidal ideation, auditory and visual hallucinations. No evidence of paranoia or vivian delusions. Reported her sleep is good. Reported appetite is good. Stated her energy level is "back to normal." Thought process linear, goal-directed. Cognition grossly intact. She reported tolerating all medications well and denied untoward effects. She reported feeling safe and ready for discharge. Discharge HBIPS - Tobacco Use Treatment Offered Post DC Medications Offered: Not Applicable Post DC Tobacco Treatment Plan: Not Applicable - EtOH/Drug Use D/O Treatment Offered Post DC Medications Offered: NA-No EtOH/Drug Use D/O Post DC EtOH/SubAbuse TX Plan: NA-No EtOH/Drug Use D/O Metabolic Screening - Screen if on a Neuroleptic Medication - Metabolic screening should include: - Blood Pressure, BMI, Glucose or Hgb A1c, & a - Lipid profile from within the past 365 days. Metabolic Screening ([X]) Not Applicable, patient not on a neuroleptic. OR () Patient on a neuroleptic(s) . Enter below results for Glucose or Hemoglobin A1C, and lipid panel if obtained during the last 365 days. BMI: 35.900 Blood Pressure: 112/75 Laboratory Results (If applicable): n/a Discharge Instructions General Discharge Information Discharge Medications: Discharge Medications- (Dose, route, freq, indication): START taking these NEW Home Medications: Trazodone HCl Dose: ORAL, AT BEDTIME Qty: 14 Sent to (Trazodone HCl) 50 50 Milligram NEEDED as needed for Refills: 0 Pharm 1 MG TABLET INSOMNIA Take 1 tab po QHS PRN for insomnia. Escitalopram Oxalate Dose: ORAL, DAILY for Qty: 14 Sent to (Lexapro) 10 MG 10 Milligram depression/anxiety Refills: 0 Pharm 1 TABLET Take 1 tab po daily. Nystatin (Nystatin) Dose: On the skin, THREE TIMES Qty: 1 Sent to 100,000 UNIT/GRAM 1 Application DAILY for antifungal Refills: 0 Pharm 1 CREAM..G. Apply 1 application topically TID. CONTINUE taking these Home Medications: Ferrous Sulfate (Ferrous Dose: ORAL, THREE TIMES DAILY Sulfate) 325 MG (65 MG 325 Milligram for IRON SUPPLEMENT IRON) TABLET. Last Taken:03/19/17 Time:1540 Calcium Carbonate/ Dose: ORAL, DAILY for Vitamin D3 (Calcium + 1 Tablet Supplement Vitamin D Tablet) 600 MG -200 TABLET Cholecalciferol (Vitamin Dose: ORAL, DAILY for D3) 1,000 UNIT TABLET 1,000 International SUPPLEMENT Unit Last Taken:NOT GIVEN IN THE HOSPITAL IN THIS FORM Time: Multivitamin With Dose: ORAL, DAILY for VITAMIN Minerals (Hair, Skin & 2 Tablet Nails) 1 EACH TABLET STOP taking these DISCONTINUED Home Medications: Ibuprofen (Ibuprofen) 800 MG Dose: ORAL, 4 TIMES A DAY as needed TABLET 1 Tablet for pain Reason Stopped: Changed Dose 1: [email or web address] [id number], [address], [place] [id number] [email or web address] [id number] [address], [place] [id number] Multiple Neuroleptics: ([X]) Not Applicable OR Document below three failed attempts at monotherapy, or a plan to taper to monotherapy, or augmentation of Clozapine. () Patient's Diet: Regular. Patient's Activity: No restrictions. DC Disposition: Patient to return to home. Friend Mavis to reside with her temporarily until completion of IOP tx. Recommendations: The patient was advised to please take her medications as prescribed. She was advised to follow-up with scheduled IOP referral. She was advised that in the event of an emergency to call 911/go to the nearest emergency department. The patient verbalized understanding of all instructions. Referred To: Provider Referral Service Date: 03/28/17 Referred To: [facility] Notes: [facility] Intensive Outpatient Psychiatry [address] [place] [address] (t)[phone] *IOP intake scheduled today, 03/28/17, at 12:45PM. Copies To: [facility]
--- NOTE | 2017-03-28 11:59 | SOCIAL WORKER PROG NOTE PSYCH ---
Social Work Progress Note Progress Note Patient continues to exhibit a stable, positive mood. She continues to deny any Si or Hi. Patient states she is ready for follow-up at [facility] at [place], and she has an intake at 12:45 p.m. today. Sunil-
[2017-03-28 12:35] VITALS: BP 112/75
== END 2017-03-28 12:56 | DRG 754 ==
LOC: CP SOUTH 20:53 → ENPENDDIS 03-28 23:59
PROVIDERS: Student in an Organized Health Care Education/Training Program; ADMIT Psychiatry & Neurology Addiction Medicine
DX: F32.9 Major depressive disorder, single episode, unspecified (principal); F43.10 Post-traumatic stress disorder, unspecified; F41.9 Anxiety disorder, unspecified; J45.909 Unspecified asthma, uncomplicated
CPT/HCPCS: 36415; 87804; 87804-59; J2405; J3101

== ENCOUNTER 2017-12-09 20:59 | Emergency (ER) | payer OTHER ==
[~2017-12-09 20:59] MED LIST changes: +HAIR, SKIN & N1 EACH PO; +LEXAPRO10 M1 PO; +NYSTATIN15 G1 TOP
--- NOTE | 2017-12-09 23:03 | RADIOLOGY REPORT ---
EXAMINATION: XR CHEST CLINICAL INFORMATION: Cough, congestion COMPARISON: 03/19/2017 TECHNIQUE: 2 views of the chest were obtained. FINDINGS: No focal consolidation, pulmonary edema, or pleural effusion. Stable cardiomediastinal silhouette. IMPRESSION: Unremarkable examination.
--- NOTE | 2017-12-09 23:10 | ED INFLUENZA/URI COMPLAINT ---
History of Present Illness General Chief Complaint: General Adult Stated Complaint: PT IS HAVING A COLD FOR THE 3 WEEKS Source: patient Exam Limitations: no limitations Vital Signs & Intake/Output Vital Signs & Intake/Output Vital Signs Date Time Temp Pulse Resp B/P B/P Pulse O2 O2 Flow FiO2 Mean Ox Delivery Rate 12/09 2124 98.5 113 22 148/90 97 Allergies Coded Allergies: tree nut (Severe, ANAPHYLAXIS 03/18/17) REACTION NOT LISTED DURING PRE-SX INTERVIEW amoxicillin (From AUGMENTIN) (HIVES 12/09/17) cat dander (RASH, COUGH, DYSPNEA 03/18/17) clavulanic acid (From AUGMENTIN) (HIVES 12/09/17) lactose (GI UPSET 03/18/17) pineapple (RASH/ITCHY TONGUE GOES NUMB AND SORES IN MOUTH 03/18/17) shrimp (ANAPHYLAXIS 03/18/17) Reconcile Medications Albuterol Sulfate (Ventolin Hfa) 90 MCG HFA.AER.AD 2 PUF INH Q4-6 PRN PRN BRONCHITIS Azithromycin 250 MG TABLET 1 DP PO AD BRONCHITIS 2 the first day followed by 1 for days 2-5 Calcium Carbonate/Vitamin D3 (Calcium + Vitamin D Tablet) 600 MG-200 TABLET 1 TAB PO DAILY Supplement Cholecalciferol (Vitamin D3) 1,000 UNIT TABLET 1,000 IU PO DAILY SUPPLEMENT Escitalopram Oxalate (Lexapro) 10 MG TABLET 10 MG PO DAILY depression/anxiety Take 1 tab po daily. Multivitamin With Minerals (Hair, Skin & Nails) 1 EACH TABLET 2 TAB PO DAILY VITAMIN (Reported) Nystatin 100,000 UNIT/GRAM CREAM..G. 1 DAVID TOP TID antifungal Apply 1 application topically TID. Prednisone 20 MG TABLET 1 TAB PO BID BRONCHITIS Trazodone HCl 50 MG TABLET 50 MG PO AT BEDTIME NEEDED PRN INSOMNIA Take 1 tab po QHS PRN for insomnia. Triage Note: PER PT COUGH AND CONGESTION X 3 WEEKS HAS NOT SEEN A DR HAS NOT TAKEN ANY OTC NO FEVERS LMP NOW COUGH NONPRODUCTIVE Triage Nurses Notes Reviewed? yes : No Patient currently breastfeeds: No HPI: 37F no significant PMH presenting with 3 weeks of persistent cough, shortness of breath, and pleuritic chest pain with deep inspiration or coughing. Has noticed intermittent chills. Denies fever, headache, sore throat, sputum production, abdominal pain, diarrhea, dysuria. Does not smoke. Past History Travel History Traveled to [place] past 21 day No Medical History Any Pertinent Medical History? see below for history Neurological: NONE EENT: SEASONAL ALLERGIES Cardiovascular: NONE Respiratory: asthma Gastrointestinal: NONE Hepatic: NONE Renal: NONE Musculoskeletal: NONE Psychiatric: SI ATTEMPT 2017 Endocrine: CYST ON THYROID Blood Disorders: NONE Cancer(s): NONE GAUGE CONTROLLER/Reproductive: NONE History of MRSA: No History of VRE: No History of CDIFF: No Surgical History Surgical History: BREAST REDUCTION Psychosocial History Who do you live with Family What is your primary language Marshallese Tobacco Use: Never used Family History Hx Contributory? No Review of Systems Review of Systems Constitutional: Reports: no symptoms. EENTM: Reports: no symptoms. Respiratory: Reports: no symptoms. Cardiovascular: Reports: no symptoms. GI: Reports: no symptoms. Genitourinary: Reports: no symptoms. Musculoskeletal: Reports: no symptoms. Skin: Reports: no symptoms. Neurological/Psychological: Reports: no symptoms. Hematologic/Endocrine: Reports: no symptoms. Immunologic/Allergic: Reports: no symptoms. All Other Systems: Reviewed and Negative Physical Exam Physical Exam General Appearance: well developed/nourished, mild distress Head: atraumatic, normal appearance Eyes: Bilateral: normal appearance. Ears, Nose, Throat: normal ENT inspection, moist mucous membrane, hearing grossly normal Neck: normal inspection, supple, full range of motion Respiratory: normal breath sounds, wheezing Cardiovascular: regular rate/rhythm Gastrointestinal: soft, non-tender Back: normal inspection, normal range of motion Extremities: normal inspection, normal range of motion Neurologic/Psych: awake, alert, oriented x 3, normal mood/affect Skin: intact, normal color, warm/dry Core Measures Sepsis Present: No Sepsis Focused Exam Completed? No Progress Differential Diagnosis: influenza, meningitis, neutropenia, otitis, pneumonia, pharyngitis, sinusitis Plan of Care: Orders Procedure Date/time Status THROAT CULTURE W/QUICK STREP 12/093 Active Initial ED EKG: none Departure Departure Disposition: HOME OR SELF CARE Condition: Stable Clinical Impression Primary Impression: Reactive airway disease that is not asthma Secondary Impressions: Acute bronchitis Referrals: Fadi Up MD (PCP/Family) Additional Instructions: Follow up with your PCP. For new or worsening symptoms return to ER. Departure Forms: Customer Survey General Discharge Information Prescriptions: Current Visit Scripts Albuterol Sulfate (Ventolin Hfa) 2 PUF INH Q4-6 PRN PRN BRONCHITIS #1 INHAL Azithromycin 1 DP PO AD #6 TAB 2 the first day followed by 1 for days 2-5 Prednisone 1 TAB PO BID #10 TAB
[2017-12-09] MEDS ORDERED: PREDNISONE20 M1 PO (23:26)
[2017-12-09] MEDS ORDERED: VENTOLIN HFA18 GM INH (23:26)
[2017-12-09] MEDS ORDERED: AZITHROMYCIN250 M1 PO (23:26)
[2017-12-09 23:42] VITALS: BP 142/84
== END 2017-12-09 23:43 ==
LOC: ERH 20:59
DX: J20.9 Acute bronchitis, unspecified (principal)
CPT/HCPCS: 71046